=== PATIENT | female | born 1960 | race Caucasian/White ===

== ENCOUNTER 2019-08-05 13:51 | Inpatient (IN) | payer OTHER ==
[2019-08-05 16:49] VITALS: BMI 25.7
--- NOTE | 2019-08-05 18:33 | HP ---
COWS - Scale Resting Pulse: 1= TN 81-100 Sweatin= Chills/Flushing Restless Observation: 3= Extraneous Movement Pupil Size: 1= Pupils >than Normal Bone or Joint Aches: 1= Mild Discomfort Runny Nose/ Eye Tearin= None GI Upset > 30mins: 0= None Tremor Observation: 0= None Yawning Observation: 0= None Anxiety or Irritability: 0= None Goose Flesh Skin: 0=Smooth Skin COWS Score: 7 CIWA Score - Admission Criteria OASAS Guidelines: Admission for Medically Managed Detox: Requires at least one of the followin. CIWA greater than 12 2. Seizures within the past 24 hours 3. Delirium tremens within the past 24 hours 4. Hallucinations within the past 24 hours 5. Acute intervention needed for co occurring medical disorder 6. Acute intervention needed for co occurring psychiatric disorder 7. Severe withdrawal that cannot be handled at a lower level of care (continued vomiting, continued diarrhea, abnormal vital signs) requiring intravenous medication and/or fluids 8. Admission ROS [facility] - HPI Chief Complaint: detox from alcohol, MAT methadone Allergies/Adverse Reactions: Allergies Allergy/AdvReac Type Severity Reaction Status Date / Time ciprofloxacin [From Cipro] AdvReac Severe Hives Verified 08/05/19 16:35 Fish Containing Products AdvReac Severe Swelling Verified 08/05/19 16:35 chocolate flavor AdvReac Intermediate Vomiting Verified 08/05/19 16:35 coffee (Coffea arabica) AdvReac Intermediate Itching Verified 08/05/19 16:35 History of Present Illness: 59 yo with h/o of OUD/AUD, COPD, cirrhosis, cured HCV pos. Pt was discharged from the hospital last week after a 6 week stay for toe amputation after trauma to toe/foot. Pt has been in a methadone program- was getting methadone 50mg while hospitalized.. Pt states that when she returned to the [facility] methadone program they would not reinstate her b/c she was using alcohol and asked her to come for detox. pt uses rolling walker- R leg shorter than L leg- b/c of trauma to leg/hip- did not have surgery yet alcohol 1-2 pints a day, no seizures/DT's heroin- 4 bags IH, h/o OD 2 years ago, was on methadone program- [facility]- 50mg last dose about 10 days ago while hospitalized. meds- gabapentin 600mg TID prn, baclofen 20mg qd for muscle, benadryl for allergies 50mg BID prn, folic acid, MVI, MDI PCP- francisca PACKER- no medications Utox- THC, fen, MTD, Mop, BZO ILSA- 0.55 - Ebola screening Have you traveled outside of the country in the last 21 days: No Have you had contact with anyone from an Ebola affected area: No Do you have a fever: No - Review of Systems Constitutional: Changes in sleep, Weakness Respiratory: reports: Cough Cardiac: reports: No Symptoms Reported GI: reports: Diarrhea, Nausea : reports: No Symptoms Reported Musculoskeletal: reports: No Symptoms Reported Integumentary: reports: No Symptoms Reported Neuro: reports: No Symptoms reported Endocrine: reports: No Symptoms Reported Hematology: reports: No Symptoms Reported Psychiatric: reports: No Sypmtoms Reported Other Systems: Reviewed and Negative Patient History - Patient Medical History Hx Chronic Obstructive Pulmonary Disease (COPD): Yes Hx Hypertension: No Hx Hypercholesterolemia: No HX Cerebrovascular Accident: No Hx Seizures: No Hx Dementia: No Hx Diabetes: No Hx Gastrointestinal Disorders: No Hx Liver Disease: Yes (cirrhosis) Hx Sexually Transmitted Disorders: No Hx Renal Disease (ESRD): No Hx Thyroid Disease: No Hx Human Immunodeficiency Virus (HIV): No Hx Hepatitis C: Yes (cured) Hx Depression: Yes (has a provider does not know name of meds) Hx Suicide Attempt: No Hx Bipolar Disorder: No Hx Schizophrenia: No - Patient Surgical History Hx Hysterectomy: Yes (ectopic ) Other Surgical History: L 2nd toe amputation, trigger finger repair - Smoking Cessation Smoking history: Current every day smoker Have you smoked in the past 12 months: Yes Aproximately how many cigarettes per day: 10 Hx Chewing Tobacco Use: No Initiated information on smoking cessation: Yes 'Breaking Loose' booklet given: 08/05/19 - Substance & Tx. History Hx Alcohol Use: Yes Hx Substance Use: Yes Substance Use Type: Alcohol, Heroin, Opiates, Prescribed - Substances abused Alcohol Substance route: Oral Frequency: Daily Amount used: 2 PINTS OF VODKA Age of first use: 44 Date of last use: 08/05/19 Other Other (specify): opiates, methadone Substance route: Inhalation Frequency: Daily Date of last use: 08/05/19 Admission Physical Exam BHS - Vital Signs Vital Signs: Vital Signs - 24 hr 08/05/19 08/05/19 16:29 16:57 Temperature 98 F 98 F Pulse Rate 98 H 98 H Respiratory 18 18 Rate Blood Pressure 119/83 119/83 - Physical General Appearance: Yes: Disheveled, Moderate Distress, Tremorous, Anxious Abdominal: Yes: Within Normal Limits Back: Yes: Within Normal Limits Musculoskeletal: Yes: Other (needs assitance to walk, R leg shorter than L leg- b/c of trauma to leg/hip- did not have surgery yet) Extremities: Yes: Other (R leg shorter than L leg, darker than l leg, b/c of trauma to leg/hip- did not have surgery yet, L 2nd toe with Distal part of toe amputation, good DP pulses) Neurological: Yes: Within Normal Limits, Fully Oriented, Other (crying because her rolling walker wheel is broken-) Lymphatic: Yes: Other Breathalyzer - Breathalyzer Breathalyzer: 0.055 Urine Drug Screen - Test Device Lot number: [id number] Expiration date: 03/05/21 - Control Is test valid?: Yes - Results Urine drug screen results: THC-Marijuana, FEN-Fentanyl, MOP-Opiates, MTD- Methadone, BZO-Benzodiazepines Inpatient Rehab Admission - Rehab Decision to Admit Inpatient rehab admission?: No
[2019-08-05] MEDS ORDERED: IBUPROFEN 400 MG TABLET (FP) PO PRN (18:52)
[2019-08-05] MEDS ORDERED: MENTHOL/PHENOL 1 EACH UD MM PRN (18:52)
[2019-08-05] MEDS ORDERED: MAGNESIUM CITRATE 300 ML BOTTLE PO PRN (18:52)
[2019-08-05] MEDS ORDERED: ONDANSETRON *ODT* 4 MG TABLET SL PRN (18:52)
[2019-08-05] MEDS ORDERED: cloNIDine HCL 0.1 MG TABLET PO PRN (18:52)
[2019-08-05] MEDS ORDERED: MELATONIN 5 MG TABLETS PO PRN (18:52)
[2019-08-05] MEDS ORDERED: BISMUTH SUBSALICYLATE 524 MG/30 ML UD PO PRN (18:52)
[2019-08-05] MEDS ORDERED: hydrOXYzine PAMOATE 25 MG CAPSULE (FP) PO PRN (18:52)
[2019-08-05] MEDS ORDERED: NALOXONE HCL 0.4 MG/ML VIAL IM PRN (18:52)
[2019-08-05] MEDS ORDERED: METHOCARBAMOL 500 MG TABLET PO PRN (18:52)
[2019-08-05] MEDS ORDERED: MAG HYDROX/AL HYDROX/SIMETH 30 ML UNIT-DOSE CUP PO PRN (18:52)
[2019-08-05] MEDS ORDERED: METHADONE HCL 10 MG TABLET (FOR DETOX USE ONLY) PO ONE (18:52)
[2019-08-05] MEDS ORDERED: MAGNESIUM HYDROX 2400MG/30ML ORAL SUSPENSION 30 ML CUP PO PRN (18:52)
[2019-08-05] MEDS ORDERED: ACETAMINOPHEN 325 MG TABLET (FP) PO PRN ×2 (18:52)
[2019-08-05] MEDS ORDERED: LORazepam 1 MG TABLET PO PRN (18:52)
[2019-08-05] MEDS ORDERED: PATIENT'S OWN MEDICATION (NON-FORMULARY) (Baclofen [Baclofen] 20 MG) PO PRN (18:56)
[2019-08-05] MEDS ORDERED: diphenhydrAMINE HCL 50 MG CAPSULE PO PRN (18:56)
[2019-08-05] MEDS ORDERED: PATIENT'S OWN MEDICATION (NON-FORMULARY) (Gabapentin [Gabapentin] 600 MG) PO PRN (18:56)
[2019-08-05] MEDS ORDERED: BACLOFEN 10 MG TABLET (FP) PO PRN (19:02)
[2019-08-05] MEDS ORDERED: GABAPENTIN 300 MG CAPSULE (FP) PO PRN (19:03)
[2019-08-05] MEDS ORDERED: LORazepam 2 MG TABLET PO ONE (19:30)
[2019-08-05] MEDS: THIAMINE HCL 100 MG TABLET (FP) PO SCH (21:52)
[2019-08-05] MEDS: LORazepam 2 MG TABLET PO SCH (22:52)
[2019-08-06] MEDS: LORazepam 2 MG TABLET PO SCH ×4 (07:07→22:50)
[2019-08-06] MEDS ORDERED: METHADONE HCL 5 MG TABLET (FOR DETOX USE ONLY) ONE (09:13)
[2019-08-06] MEDS ORDERED: METHADONE HCL 10 MG TABLET (FOR DETOX USE ONLY) ONE (09:13)
[2019-08-06] MEDS ORDERED: METHADONE (DETOX) 20 MG, METHADONE (DETOX) 5 MG PO ONE (10:00)
[2019-08-06] MEDS ORDERED: PRENATAL VITAMINS W/ FOLIC ACID TABLET (FP) PO SCH (10:00)
[2019-08-06] MEDS ORDERED: NICOTINE 14 MG/24 HOURS TOPICAL PATCH TD SCH (10:00)
[2019-08-06 10:21] LABS: HEMATOCRIT 36.5 % (32.4-45.2); HEMOGLOBIN 12.1 GM/dL (10.7-15.3); MCH 31.8 pg (25.7-33.7); MCHC 33.3 g/dl (32.0-36.0); MEAN CELL VOLUME 95.5 fl (80-96); MEAN PLT VOLUME 10.2 fl (7.5-11.1); RBC 3.82 M/mm3 (3.60-5.2); RDW 13.7 % (11.6-15.6)
--- NOTE | 2019-08-06 10:31 | CONSULT ---
[facility] Psychiatric Consult - Data Date of interview: 08/06/19 Admission source: Júnior De La Cruz Identifying data: Ms Espinoza is a 59 years old female, mother of a 40 years old daughter, unemployed receiving SSD, homeless seeking detox treatment for alcohol and opioid Substance Abuse History: Reports history of alcohol and heroin use. Refer to addiction counselor's summary for further information Medical History: Significant for COPD, cirrhosis of the liver, history of treatment for hepatitits C, orthosurgery for ampitation of left second toe due to trauma an ectopic . Smokes 10 cigarette daily Psychiatric History: Patient is a poor and unreliable historian. Reports that she started seeing a psychiatrist in [place] due depression in the context of medical issues after a fall. Claims that she was mainly receiving psychotherapy but she was prescribed a medication which she has no recollection of the name. She said that she saw that person till she moved to the [place] but she was unable to tell when she did so. Claims that she currently sees a psychiatrist at a program at [facility] and she is prescribed medication for sleep. Denies previous psychiatric hospitalization or suicidal attempt. At present, reports feeling depressed and sleeping poorly Mental Status Exam - Mental Status Exam Alert and Oriented to: Time, Place, Person Cognitive Function: Fair Patient Appearance: Well Groomed Mood: Depressed Affect: Appropriate Speech Pattern: Clear Voice Loudness: Normal Thought Process: Intact, Goal Oriented Hallucinations: Denies Suicidal Ideation: Denies Homicidal Ideation: Denies Insight/Judgement: Poor Sleep: Poorly Appetite: Poor Muscle strength/Tone: Normal Gait/Station: Normal Psychiatric Findings - Problem List ([place] 1, 2,3) (1) Substance induced mood disorder Current Visit: Yes Status: Acute (2) Substance-induced sleep disorder Current Visit: Yes Status: Acute (3) Alcohol dependence Current Visit: Yes Status: Acute (4) Opioid dependence on agonist therapy Current Visit: Yes Status: Chronic (5) Nicotine dependence Current Visit: Yes Status: Chronic (6) COPD (chronic obstructive pulmonary disease) Current Visit: Yes Status: Chronic (7) Cirrhosis of liver Current Visit: Yes Status: Chronic (8) Hepatitis C Current Visit: Yes Status: Resolved - Initial Treatment Plan Initial Treatment Plan: 1) Start Belsomra 10 mg po HS prn for insomnia. 2) Continue inpatient detoxification
[2019-08-06 10:42] LABS: ALBUMIN 2.9 g/dl (3.4-5.0); BILIRUBIN,TOTAL 0.6 mg/dL (0.2-1); BLOOD UREA NITROGEN 13.8 mg/dL (7-18); CALCIUM 8.4 mg/dL (8.5-10.1); CREATININE 0.6 mg/dL (0.55-1.3); POTASSIUM 3.1 mmol/L (3.5-5.1); TOT PROT 6.1 g/dl (6.4-8.2)
[2019-08-06 10:55] LABS: PLATELET COUNT 36 K/MM3 (134-434); WHITE BLOOD COUNT 1.4 K/mm3 (4.0-10.0)
[2019-08-06] MEDS ORDERED: POTASSIUM CHLORIDE TABS 20 MEQ TABLET.ER (FP) PO SCH (13:15)
--- NOTE | 2019-08-06 13:19 | PN ---
S CIWA - CIWA Score Nausea/Vomitin Muscle Tremors: 2 Anxiety: 3 Agitation: 0-Normal Activity Paroxysmal Sweats: 1-Minimal Palms Moist Orientation: 0-Oriented Tacttile Disturbances: 1-Very Mild Itch/Numbness Auditory Disturbances: 0-None Visual Disturbances: 0-None Headache: 0-None Present CIWA-Ar Total Score: 10 BHS COWS - Scale Resting Pulse: 1= [place] 81-100 Sweatin= Chills/Flushing Restless Observation: 1= Difficult to Sit Still Pupil Size: 0= Normal to Room Light Bone or Joint Aches: 2= Severe Diffuse Aches Runny Nose/ Eye Tearin= Nasal Congestion GI Upset > 30mins: 2= Nausea/Diarrhea Tremor Observation of Outstretched Hands: 1= Tremor [place], Not Seen Yawning Observation: 1= 1-2x During Session Anxiety or Irritability: 2=Irritable/Anxious Goose Flesh Skin: 0=Smooth Skin COWS Score: 12 [facility] Progress Note (SOAP) Subjective: c/o of body aches, chills, nausea and diarrhea Objective: 08/06/19 13:22 Vital Signs Temperature 98.8 F 08/06/19 10:16 Pulse Rate 91 H 08/06/19 10:16 Respiratory Rate 18 08/06/19 10:16 Blood Pressure 98/62 08/06/19 10:16 O2 Sat by Pulse Oximetry (%) Laboratory Last Values WBC 1.4 K/mm3 (4.0-10.0) L* 08/06/19 07:40 RBC 3.82 M/mm3 (3.60-5.2) 08/06/19 07:40 Hgb 12.1 GM/dL (10.7-15.3) 08/06/19 07:40 Hct 36.5 % (32.4-45.2) 08/06/19 07:40 MCV 95.5 fl (80-96) 08/06/19 07:40 MCH 31.8 pg (25.7-33.7) 08/06/19 07:40 MCHC 33.3 g/dl (32.0-36.0) 08/06/19 07:40 RDW 13.7 % (11.6-15.6) 08/06/19 07:40 Plt Count 36 K/MM3 (134-434) L* 08/06/19 07:40 MPV 10.2 fl (7.5-11.1) 08/06/19 07:40 Sodium 138 mmol/L (136-145) 08/06/19 07:40 Potassium 3.1 mmol/L (3.5-5.1) L 08/06/19 07:40 Chloride 101 mmol/L (98-107) 08/06/19 07:40 Carbon Dioxide 31 mmol/L (21-32) 08/06/19 07:40 Anion Gap 6 MMOL/L (8-16) L 08/06/19 07:40 BUN 13.8 mg/dL (7-18) 08/06/19 07:40 Creatinine 0.6 mg/dL (0.55-1.3) 08/06/19 07:40 Est GFR (CKD-EPI)AfAm 114.82 08/06/19 07:40 Est GFR (CKD-EPI)NonAf 99.07 08/06/19 07:40 Random Glucose 96 mg/dL (74-106) 08/06/19 07:40 Calcium 8.4 mg/dL (8.5-10.1) L 08/06/19 07:40 Total Bilirubin 0.6 mg/dL (0.2-1) 08/06/19 07:40 AST 27 U/L (15-37) 08/06/19 07:40 ALT 25 U/L (13-61) 08/06/19 07:40 Alkaline Phosphatase 125 U/L (45-117) H 08/06/19 07:40 Total Protein 6.1 g/dl (6.4-8.2) L 08/06/19 07:40 Albumin 2.9 g/dl (3.4-5.0) L 08/06/19 07:40 RPR Titer Nonreactive (NONREACTIVE) 08/06/19 07:40 Labs reviewed Assessment: 08/06/19 13:23 Patient Aox3, no acute distress sitting in bed, wheelchair present at the bedside full ROM present no erythema present withdrawal sx Plan: abnormal labs d/t hx of liver cirrhosis and alcohol abuse, repeat CBC, CMP, draw PT/INR hypokalemia: KDur 20 qd d/c ibuprofen and acetaminophen decrease dose in baclofen d/t risk of sedation increase fluids continue to monitor if worsening symptoms present evaluate at [facility]
[2019-08-06 14:48] VITALS: BP 104/77; PULSE 101; TEMP 98.7
--- NOTE | 2019-08-06 17:45 | EKG ---
Test Reason : Blood Pressure : / mmHG Vent. Rate : 105 BPM Atrial Rate : 105 BPM P-R Int : 174 ms QRS Dur : 098 ms QT Int : 368 ms P-R-T Axes : 062 051 044 degrees QTc Int : 486 ms SINUS TACHYCARDIA OTHERWISE NORMAL ECG NO PREVIOUS ECGS AVAILABLE Confirmed by PACHECO SAAVEDRA, HORTENCIA ([id number]) on 08/06/2019 5:45:40 PM Referred By: CLAY Confirmed By:HORTENCIA BERGMAN MD
[2019-08-06] MEDS ORDERED: diphenhydrAMINE HCL 25 MG CAPSULE (FP) PO ONE (21:33)
[2019-08-06] MEDS: THIAMINE HCL 100 MG TABLET (FP) PO SCH (22:51)
[2019-08-07] MEDS ORDERED: LORazepam 1 MG TABLET PO SCH (05:00)
[2019-08-07] MEDS ORDERED: METHADONE HCL 10 MG TABLET (FOR DETOX USE ONLY) PO ONE (10:00)
[2019-08-08] MEDS ORDERED: LORazepam 0.5 MG TABLET PO PRN
[2019-08-08] MEDS ORDERED: LORazepam 0.5 MG TABLET PO SCH (05:00)
[2019-08-08] MEDS ORDERED: METHADONE (DETOX) 10 MG, METHADONE (DETOX) 5 MG PO ONE (10:00)
[2019-08-09] MEDS ORDERED: LORazepam 0.5 MG TABLET PO ONE (05:00)
[2019-08-09] MEDS ORDERED: METHADONE HCL 10 MG TABLET (FOR DETOX USE ONLY) PO ONE (10:00)
[2019-08-10] MEDS ORDERED: METHADONE HCL 5 MG TABLET (FOR DETOX USE ONLY) PO ONE (06:00)
== END 2019-08-07 00:46 | disposition short-term general hospital (02) | DRG 773 ==
LOC: YASAS 13:51 → Y6N 19:27
PROVIDERS: ADMIT Allergy & Immunology; ATTEND Allergy & Immunology
PROC: HZ2ZZZZ Detoxification Services for Substance Abuse Treatment (ICD-10-PCS; principal; 2019-08-05)
DX: F10.230 Alcohol dependence with withdrawal, uncomplicated (principal); F11.20 Opioid dependence, uncomplicated; F17.210 Nicotine dependence, cigarettes, uncomplicated; F19.24 Other psychoactive substance dependence with psychoactive substance-induced mood disorder; F19.282 Other psychoactive substance dependence with psychoactive substance-induced sleep disorder; E87.6 Hypokalemia; K74.60 Unspecified cirrhosis of liver; J44.9 Chronic obstructive pulmonary disease, unspecified; Z86.19 Personal history of other infectious and parasitic diseases; Z88.1 Allergy status to other antibiotic agents; Z91.013 Allergy to seafood; Z91.018 Allergy to other foods
CPT/HCPCS: 36415; 80053; 85027; 86593; 93005; 93010; J0475

== ENCOUNTER 2019-08-06 16:11 | Inpatient (IN) | payer OTHER ==
[2019-08-06] MEDS ORDERED: SODIUM CHLORIDE 1,973 ML IV ONE (16:55)
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
[2019-08-06 17:30] LABS: VENOUS PH 7.39 (7.31-7.41)
[2019-08-06 17:33] LABS: VENOUS PO2 < 49 mmHg (28-48)
--- NOTE | 2019-08-06 18:11 | PDOC ---
Documentation entered by Aubree Larios SCRIBE, acting as scribe for Shravan Cheney MD. Shravan Cheney MD: This documentation has been prepared by the Ric olson Nirvannie, SCRIBE, under my direction and personally reviewed by me in its entirety. I confirm that the documentation accurately reflects all work, treatment, procedures, and medical decision making performed by me. Attending Attestation - Resident Resident Name: Ishmael Sims - ED Attending Attestation I have performed the following: I have examined & evaluated the patient, The case was reviewed & discussed with the resident, I agree w/resident's findings & plan, Exceptions are as noted - HPI HPI: 08/06/19 18:07 CC: Lethargy, Weakness HPI: The patient is a year old male, with a significant past medical history of substance abuse (heroin and alcohol), COPD, cirrhosis, cured HCV pos, who presents to the emergency department via EMS from [facility] with lethargy, weakness, and diffuse malaise subjective fevers found to have low WBC at [facility] sent to the ED for further evaluation. - Physicial Exam PE: 08/06/19 18:59 Vitals: Triage Vital signs reviewed General Appearance: No acute distress, well nourished well developed, Head: Atraumatic, Cardiac: Regular rate and rhythym, no murmurs, no rubs, no gallops, Lungs: Clear to auscultation bilateral, good air movement bilaterally, Abdomen: Soft, non distended, normal bowel sounds, non tender to palpation Extremities: Full range of motion to all extremities, no cyanosis, clubbing, or edema Skin: Warm and dry, no rashes or lesions, no rash, no petechiae Psych: Normal mood, normal affect - Medical Decision Making 08/06/19 19:01 Subjective fever chills low WBC will evaluate patient for neutropenia sepsis work-up and reassess Dr. See to follow-up labs results and disposition
[2019-08-06 18:21] LABS: MEAN CELL VOLUME 95.8 fl (80-96)
[2019-08-06 18:28] LABS: BASO % 0.7 % (0-2.0); EOS % 0.8 % (0-4.5); HEMATOCRIT 39.4 % (32.4-45.2); HEMOGLOBIN 13.1 GM/dL (10.7-15.3); LYMPH % 21.6 % (8-40); MCH 31.9 pg (25.7-33.7); MCHC 33.3 g/dl (32.0-36.0); MEAN PLT VOLUME 9.3 fl (7.5-11.1); MONO % 15.7 % (3.8-10.2); NEUT % 61.2 % (42.8-82.8); RBC 4.12 M/mm3 (3.60-5.2); RDW 13.9 % (11.6-15.6)
[2019-08-06 18:32] LABS: PLATELET COUNT 47 K/MM3 (134-434); WHITE BLOOD COUNT 1.5 K/mm3 (4.0-10.0)
[2019-08-06 18:37] LABS: INR 1.13 (0.83-1.09); PROTHROMBIN TIME (PATIENT) 13.4 SEC (9.7-13.0)
[2019-08-06 18:40] LABS: ACTIVATED PTT 29.4 SECONDS (25.2-36.5)
[2019-08-06 18:54] LABS: PLATELET ESTIMATE DECREASED
[2019-08-06 19:05] LABS: BILIRUBIN,TOTAL 0.5 mg/dL (0.2-1); BLOOD UREA NITROGEN 14.5 mg/dL (7-18); CALCIUM 8.7 mg/dL (8.5-10.1); CREATININE 0.7 mg/dL (0.55-1.3); POTASSIUM 4.1 mmol/L (3.5-5.1); TOT PROT 6.6 g/dl (6.4-8.2)
[2019-08-06] MEDS ORDERED: VANCOMYCIN HCL 1,500 MG in DEXTROSE 5%-WATER - 500 ML IVPB ONE (19:13)
[2019-08-06 19:15] LABS: EPI CELLS 6.3 /HPF (0-5/HPF); HYALINE CASTS 6 /lpf (0-8); URINE APPEARANCE CLOUDY; URINE BACTERIA 4250.6 /hpf (NEGATIVE); URINE BILIRUBIN NEGATIVE (NEGATIVE); URINE COLOR YELLOW; URINE GLUCOSE (UA) NEGATIVE (NEGATIVE); URINE KETONE NEGATIVE (NEGATIVE); URINE LEUK ESTERASE 2+ (NEGATIVE); URINE NITRITE POSITIVE (NEGATIVE); URINE PROTEIN 1+ (NEGATIVE); URINE RBC 25 /hpf (0-4); URINE WBC 84 /hpf (0-5)
[2019-08-06] MEDS ORDERED: PIPERACILLIN/TAZOB 3.375 GM 3.375 GM in DEXTROSE 5%-WATER - 50 ML IVPB ONE (19:15)
[2019-08-06] MEDS ORDERED: chlordiazePOXIDE HCL 25 MG CAPSULE PO ONE (19:19)
[2019-08-06] MEDS ORDERED: diphenhydrAMINE HCL 50 MG CAPSULE PO ONE (19:19)
[2019-08-06] MEDS ORDERED: chlordiazePOXIDE HCL 25 MG CAPSULE ONE (19:26)
[2019-08-06] MEDS ORDERED: diphenhydrAMINE HCL 25 MG CAPSULE (FP) PO ONE (19:27)
[2019-08-06] MEDS ORDERED: VANCOMYCIN 1 GRAM (PRE-DOCKED) 1,000 MG/250 ML BAG IVPB ONE (19:27)
[2019-08-06] MEDS ORDERED: PIPERACILLIN/TAZOB 3.375 GM 3.375 GM/50 ML BAG IVPB ONE (19:28)
[2019-08-06] MEDS ORDERED: ALBUTEROL SO4 2.5/IPRATROPIUM 0.5 INH SOL 3 ML VIAL.NEB. NEB ONE ×4 (19:28→22:54)
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
[2019-08-06 20:20] LABS: MAGNESIUM 2.1 mg/dL (1.8-2.4)
[2019-08-06 20:24] LABS: COCAINE, UR NEGATIVE ng/ml (CUTOFF=300); PHENCYCLIDINE,URINE NEGATIVE ng/ml (CUTOFF=25); URINE AMPHETAMINES NEGATIVE ng/ml (CUTOFF=500); URINE BARBITURATES NEGATIVE ng/ml (CUTOFF=200); URINE BENZODIAZEPINES NEGATIVE ng/ml (CUTOFF=200)
[2019-08-06 20:25] LABS: OPIATES, URI POSITIVE ng/ml (CUTOFF=300)
[2019-08-06 20:26] LABS: METHADONE, UR POSITIVE ng/ml (CUTOFF=300)
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
[2019-08-06] MEDS ORDERED: ACETAMINOPHEN 1000 MG/100 ML VIAL (NON FORMULARY) IVPB ONE (20:52)
[2019-08-06] MEDS ORDERED: ACETAMINOPHEN INJECTION 100 ML IVPB ONE (21:41)
[2019-08-06] MEDS ORDERED: LORazepam 1 MG TABLET PO PRN (22:11)
[2019-08-06] MEDS ORDERED: FOLIC ACID INJECTION - 1 MG, THIAMINE HCL 100 MG, MULTIVIT INJECTION ADULT 10 ML in SOD... IVPB ONE (22:12)
[2019-08-06] MEDS ORDERED: LORazepam 0.5 MG TABLET ONE (22:55)
[2019-08-06] MEDS: LORazepam 2 MG TABLET PO SCH (23:01)
--- NOTE | 2019-08-06 23:19 | HP ---
CHIEF COMPLAINT:lower abdominal pain PCP:scot geiger HISTORY OF PRESENT ILLNESS: 59 yo F PMH COPD, HCV (s/p tx) , cirrhosis, substance abuse ( heroin , alcohol- last use 2 days ago) presents from [facility] for leukopenia, thrombocytopenia. pt states that she has been having lower abdominal pain since last night. pt states that shes also been having dysuria for 4 days. pt is a poor historian and very lethargic. ER course was notable for: (1)s/p vanc / zosyn (2)librium 25 (3) Recent Travel: denies Family History: Mother- Colon Ca, Father lung ca PAST MEDICAL HISTORY: COPD, HCV (s/p tx) , cirrhosis, substance abuse ( heroin , alcohol- last use 2 days ago) PAST SURGICAL HISTORY: L 2nd toe amputation Social History: Smokin/2 pk/ day for> 30 yrs Alcohol:last drink 2 days ago Drugs: methadone, heroin Allergies ciprofloxacin [From Cipro] Adverse Reaction (Severe, Verified 08/06/19 16:44) Hives Fish Containing Products Adverse Reaction (Severe, Verified 08/06/19 16:44) Swelling chocolate flavor Adverse Reaction (Intermediate, Verified 08/06/19 16:44) Vomiting coffee (Coffea arabica) Adverse Reaction (Intermediate, Verified 08/06/19 16:44) Itching HOME MEDICATIONS: Home Medications Medication Instructions Recorded Baclofen 20 mg PO TID 08/05/19 Diphenhydramine [Benadryl -] 50 mg PO TID PRN 08/05/19 Folic Acid 1 mg PO DAILY 08/05/19 Gabapentin 600 mg PO TID 08/05/19 Multivitamin [One-Daily 1 each PO DAILY 08/05/19 Multi-Vitamin] Zolpidem Tartrate [Ambien] 5 mg PO HS 08/05/19 REVIEW OF SYSTEMS CONSTITUTIONAL: Absent: fever, chills, diaphoresis, generalized weakness, malaise, loss of appetite, weight change HEENT: Absent: rhinorrhea, nasal congestion, throat pain, throat swelling, difficulty swallowing, mouth swelling, ear pain, eye pain, visual changes CARDIOVASCULAR: Absent: chest pain, syncope, palpitations, irregular heart rate, lightheadedness , peripheral edema RESPIRATORY: Absent: cough, shortness of breath, dyspnea with exertion, orthopnea, wheezing, stridor, hemoptysis GASTROINTESTINAL: Present: abdominal pain, nausea, diarrhea Absent:abdominal distension, vomiting, constipation, melena, hematochezia GENITOURINARY: PResent: dysuria Absent: frequency, urgency, hesitancy, hematuria, flank pain, genital pain MUSCULOSKELETAL: Absent: myalgia, arthralgia, joint swelling, back pain, neck pain SKIN: Absent: rash, itching, pallor HEMATOLOGIC/IMMUNOLOGIC: Absent: easy bleeding, easy bruising, lymphadenopathy, frequent infections ENDOCRINE: Absent: unexplained weight gain, unexplained weight loss, heat intolerance, cold intolerance NEUROLOGIC: Present: headache Absent: focal weakness or paresthesias, dizziness, unsteady gait, seizure, mental status changes, bladder or bowel incontinence PSYCHIATRIC: Present: anxiety Absent: anxiety, depression, suicidal or homicidal ideation, hallucinations. PHYSICAL EXAMINATION Vital Signs - 24 hr 08/06/19 16:15 Temperature 99.5 F Pulse Rate 99 H Respiratory 16 Rate Blood Pressure 99/64 O2 Sat by Pulse 95 Oximetry (%) GENERAL: diaphoretic, lethargic , anxious HEAD: Normal with no signs of trauma. EYES: Pupils equal, round and reactive to light, extraocular movements intact, sclera anicteric, conjunctiva clear. EARS, NOSE, THROAT: nares patent, oropharynx clear without exudates. Moist mucous membranes. + tongue fasciculation NECK: Normal range of motion, supple without lymphadenopathy, or masses. + JVD, + hepatojugular LUNGS: Breath sounds equal,b/l expiratory wheezes and rhonchi .No accessory muscle use. HEART: tachycardic and regular rhythm, normal S1 and S2 without murmur, rub or gallop. ABDOMEN: Soft, nontender, not distended, normoactive bowel sounds, no guarding, no rebound, no masses. MUSCULOSKELETAL: decreased range of motion at R shoulder . No bony deformities or tenderness. No CVA tenderness. UPPER EXTREMITIES: 2+ pulses, warm, well-perfused. No cyanosis. + clubbing. No peripheral edema. LOWER EXTREMITIES: 2+ pulses, warm, well-perfused. No calf tenderness. No peripheral edema. NEUROLOGICAL: Cranial nerves II-XII intact. PSYCHIATRIC: anxious, CIWA 19 Laboratory Last Values WBC 1.5 K/mm3 (4.0-10.0) L* 08/06/19 18:10 Corrected WBC (auto) Cancelled 08/06/19 17:30 RBC 4.12 M/mm3 (3.60-5.2) 08/06/19 18:10 Hgb 13.1 GM/dL (10.7-15.3) 08/06/19 18:10 Hct 39.4 % (32.4-45.2) 08/06/19 18:10 MCV 95.8 fl (80-96) 08/06/19 18:10 MCH 31.9 pg (25.7-33.7) 08/06/19 18:10 MCHC 33.3 g/dl (32.0-36.0) 08/06/19 18:10 RDW 13.9 % (11.6-15.6) 08/06/19 18:10 Plt Count 47 K/MM3 (134-434) L D 08/06/19 18:10 MPV 9.3 fl (7.5-11.1) 08/06/19 18:10 Absolute Neuts (auto) 0.9 K/mm3 (1.5-8.0) L 08/06/19 18:10 Absolute Lymphs (auto) Cancelled 08/06/19 17:30 Absolute Monos (auto) Cancelled 08/06/19 17:30 Absolute Eos (auto) Cancelled 08/06/19 17:30 Absolute Basos (auto) Cancelled 08/06/19 17:30 Add Manual Diff Cancelled 08/06/19 17:30 Total Counted 100 08/06/19 18:10 Neutrophils % 61.2 % (42.8-82.8) 08/06/19 18:10 Neutrophils % (Manual) 60.0 % (42.8-82.8) 08/06/19 18:10 Band Neutrophils % 4.0 % 08/06/19 18:10 Lymphocytes % 21.6 % (8-40) 08/06/19 18:10 Lymphocytes % (Manual) 22.0 % (8-40) 08/06/19 18:10 Monocytes % 15.7 % (3.8-10.2) H 08/06/19 18:10 Monocytes % (Manual) 14 % (3.8-10.2) H 08/06/19 18:10 Eosinophils % 0.8 % (0-4.5) 08/06/19 18:10 Basophils % 0.7 % (0-2.0) 08/06/19 18:10 Nucleated RBC % 0 % (0-0) 08/06/19 18:10 Platelet Estimate Decreased 08/06/19 18:10 Platelet Comment No clumping noted 08/06/19 18:10 Normal RBC Morphology Cancelled 08/06/19 17:30 PT with INR 13.40 SEC (9.7-13.0) H 08/06/19 18:10 INR 1.13 (0.83-1.09) H 08/06/19 18:10 PTT (Actin FS) 29.4 SECONDS (25.2-36.5) 08/06/19 18:10 VBG pH 7.39 (7.31-7.41) 08/06/19 17:15 POC VBG pCO2 50.0 mmHg (38-52) 08/06/19 17:15 POC VBG pO2 < 49 mmHg (28-48) H 08/06/19 17:15 VBG HCO3 29.8 mmol/L (23-29) H 08/06/19 17:15 VBG O2 Sat (Minor) 76.4 % (70-80) 08/06/19 17:15 VBG Base Excess 4.5 meq/l (-2-2) H 08/06/19 17:15 Sodium 139 mmol/L (136-145) 08/06/19 18:00 Potassium 4.1 mmol/L (3.5-5.1) 08/06/19 18:00 Chloride 104 mmol/L (98-107) 08/06/19 18:00 Carbon Dioxide 32 mmol/L (21-32) 08/06/19 18:00 Anion Gap 3 MMOL/L (8-16) L 08/06/19 18:00 BUN 14.5 mg/dL (7-18) 08/06/19 18:00 Creatinine 0.7 mg/dL (0.55-1.3) 08/06/19 18:00 Est GFR (CKD-EPI)AfAm 109.15 08/06/19 18:00 Est GFR (CKD-EPI)NonAf 94.17 08/06/19 18:00 Random Glucose 102 mg/dL (74-106) 08/06/19 18:00 Lactic Acid 1.3 mmol/L (0.4-2.0) 08/06/19 17:25 Calcium 8.7 mg/dL (8.5-10.1) 08/06/19 18:00 Magnesium 2.1 mg/dL (1.8-2.4) 08/06/19 18:10 Total Bilirubin 0.5 mg/dL (0.2-1) 08/06/19 18:00 AST 29 U/L (15-37) 08/06/19 18:00 ALT 27 U/L (13-61) 08/06/19 18:00 Alkaline Phosphatase 150 U/L (45-117) H 08/06/19 18:00 B-Natriuretic Peptide 31.0 pg/ml (5-125) 08/06/19 18:10 Total Protein 6.6 g/dl (6.4-8.2) 08/06/19 18:00 Albumin 3.0 g/dl (3.4-5.0) L 08/06/19 18:00 Urine Color Yellow 08/06/19 19:00 Urine Appearance Cloudy 08/06/19 19:00 Urine pH 7.0 (5.0-8.0) 08/06/19 19:00 Ur Specific [place] 1.019 (1.010-1.035) 08/06/19 19:00 Urine Protein 1+ (NEGATIVE) H 08/06/19 19:00 Urine Glucose (UA) Negative (NEGATIVE) 08/06/19 19:00 Urine Ketones Negative (NEGATIVE) 08/06/19 19:00 Urine Blood 1+ (NEGATIVE) H 08/06/19 19:00 Urine Nitrite Positive (NEGATIVE) H 08/06/19 19:00 Urine Bilirubin Negative (NEGATIVE) 08/06/19 19:00 Urine Urobilinogen 2.0 mg/dL (0.2-1.0) H 08/06/19 19:00 Ur Leukocyte Esterase 2+ (NEGATIVE) H 08/06/19 19:00 Urine WBC (Auto) 84 /hpf (0-5) 08/06/19 19:00 Urine RBC (Auto) 25 /hpf (0-4) 08/06/19 19:00 Urine Casts (Auto) 6 /lpf (0-8) 08/06/19 19:00 U Epithel Cells (Auto) 6.3 /HPF (0-5/HPF) 08/06/19 19:00 Urine Bacteria (Auto) 4250.6 /hpf (NEGATIVE) 08/06/19 19:00 Opiates Screen Positive ng/ml (NYPASS=200) A* 08/06/19 19:00 Methadone Screen Positive ng/ml (XRRRIQ=192) A* 08/06/19 19:00 Barbiturate Screen Negative ng/ml (OJZPCE=310) 08/06/19 19:00 Phencyclidine Screen Negative ng/ml (CUTOFF=25) 08/06/19 19:00 Ur Amphetamines Screen Negative ng/ml (CEAWLD=845) 08/06/19 19:00 MDMA (Ecstasy) Screen Negative ng/ml (GIQHSK=091) 08/06/19 19:00 Benzodiazepines Screen Negative ng/ml (LKTNZC=203) 08/06/19 19:00 Cocaine Screen Negative ng/ml (YTGJTW=613) 08/06/19 19:00 U Marijuana (THC) Screen Positive ng/ml (CUTOFF=50) A* 08/06/19 19:00 Influenza A (Rapid) Negative (Negative) 08/06/19 17:50 Influenza B (Rapid) Negative (Negative) 08/06/19 17:50 Blood Type AB POSITIVE 08/06/19 18:10 Antibody Screen Negative 08/06/19 18:10 ASSESSMENT/PLAN: 59 yo F PMH COPD, HCV (s/p tx) , cirrhosis, substance abuse ( heroin , alcohol- last use 2 days ago) presents from [facility] for leukopenia, thrombocytopenia. pt admitted for sepsis 2/2 UTI Sepsis 2/2 UTI - + UA , pending UCulture , pending BCx - c/w empiric vanc/ zosyn -pending renal and bladder U/s - ID recs appreciated - pending CXR Leukopenia, thrombocytopenia - likely 2/2 alcohol abuse and cirrhosis - pending HIV testing Acute toxic metabolic encephalopathy - r/o acute intracranial pathology -pending CT head COPD -c/w duonebs substance abuse/ Alcohol withdrawal - CIWA 19, continue ativan protocol - IV fluids, folate, thiamine - c/w methadone 25, as per [facility] orders - seizure precautions decreased ROM of R shoulder, will get XR to r/o pathology F/E/N - c/w IV fluids @ 75 mls/ hr - c/w Folate, thiamine -monitor lytes -regular diet DVT ppx: lovenox Dispo: admit to medicine Visit type - Emergency Visit Emergency Visit: Yes ED Registration Date: 08/06/19 Care time: The patient presented to the Emergency Department on the above date and was hospitalized for further evaluation of their emergent condition. - New Patient This patient is new to me today: Yes Date on this admission: 08/07/19 - Critical Care Critical Care patient: No ATTENDING PHYSICIAN STATEMENT I saw and evaluated the patient. I reviewed the resident's note and discussed the case with the resident. I agree with the resident's findings and plan as documented. SUBJECTIVE: OBJECTIVE: ASSESSMENT AND PLAN:
[2019-08-07 03:57] VITALS: BMI 26.1
[2019-08-07] MEDS ORDERED: PIPERACILLIN/TAZOBACTAM 2.25 GM VIAL IVPB ONE ×2 (04:10→09:28)
[2019-08-07] MEDS ORDERED: DEXTROSE 5%-WATER - 50 ML IVPB ONE ×2 (04:11→09:29)
[2019-08-07] MEDS: PIPERACILLIN/TAZOB 2.25 GM 2.25 GM in DEXTROSE 5%-WATER - 50 ML IVPB SCH ×3 (04:56→15:03)
[2019-08-07] MEDS: LORazepam 2 MG TABLET PO SCH ×2 (05:11→11:29)
[2019-08-07 07:58] LABS: BASO % 0.5 % (0-2.0); EOS % 1.5 % (0-4.5); HEMATOCRIT 33.9 % (32.4-45.2); HEMOGLOBIN 11.4 GM/dL (10.7-15.3); LYMPH % 30.3 % (8-40); MCH 32.2 pg (25.7-33.7); MCHC 33.6 g/dl (32.0-36.0); MEAN CELL VOLUME 95.8 fl (80-96); MEAN PLT VOLUME 9.3 fl (7.5-11.1); MONO % 22.4 % (3.8-10.2); NEUT % 45.3 % (42.8-82.8); RBC 3.53 M/mm3 (3.60-5.2); RDW 13.9 % (11.6-15.6)
[2019-08-07] MEDS: ALBUTEROL SO4 2.5/IPRATROPIUM 0.5 INH SOL 3 ML VIAL.NEB. NEB SCH ×4 (08:27→20:30)
[2019-08-07 08:34] LABS: WHITE BLOOD COUNT 1.2 K/mm3 (4.0-10.0)
[2019-08-07 08:35] LABS: PLATELET COUNT 34 K/MM3 (134-434)
[2019-08-07 08:41] LABS: ALBUMIN 2.5 g/dl (3.4-5.0); BILIRUBIN,TOTAL 0.6 mg/dL (0.2-1); CALCIUM 8.2 mg/dL (8.5-10.1); CREATININE 0.6 mg/dL (0.55-1.3); MAGNESIUM 2.2 mg/dL (1.8-2.4); PHOSPHOROUS 4.3 mg/dL (2.5-4.9); POTASSIUM 3.8 mmol/L (3.5-5.1); TOT PROT 5.5 g/dl (6.4-8.2)
[2019-08-07] MEDS ORDERED: FOLIC ACID 5 MG/1 ML SQ ONE (09:00)
[2019-08-07] MEDS: THIAMINE HCL 200 MG/2 ML VIAL IVPB SCH (09:35)
[2019-08-07] MEDS ORDERED: PT OWN MED DRAWER 7, Y5N ONE ×3 (09:39→11:00)
[2019-08-07] MEDS ORDERED: LORazepam 2 MG/ML SDV VIAL IVPUSH ONE (09:45)
[2019-08-07] MEDS ORDERED: ENOXAPARIN NA (PORCINE) 40 MG/0.4 ML DISP.SYRIN SQ SCH (10:00)
[2019-08-07] MEDS ORDERED: VANCOMYCIN 1 GM in D5W (PRE-DOCKED) 1,000 MG/250 ML IVPB SCH ×2 (10:00→23:00)
[2019-08-07] MEDS ORDERED: LORazepam 1 MG TABLET PO SCH (11:04)
[2019-08-07] MEDS: LORazepam 1 MG TABLET PO SCH ×3 (11:26→22:35)
[2019-08-07] MEDS ORDERED: GABAPENTIN 300 MG CAPSULE (FP) PO ONE (11:59)
[2019-08-07 12:06] LABS: ANISOCYTOSIS 0; MACROCYTOSIS 0; PLATELET ESTIMATE DECREASED
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
[2019-08-07] MEDS ORDERED: METHADONE HCL 10 MG TABLET PO ONE (13:39)
--- NOTE | 2019-08-07 14:38 | PN ---
Progress Note (short form) - Note Progress Note: ID consult imp/reccd Neutropenic fever UTI etoh use ex-heroine user- on methadone hep c cirrhosis- not treated please check HIV if patient is agreeble check hep serology b/c continue zosyn f/u cultures Problem List - Problems (1) Neutropenic fever Code(s): D70.9 - NEUTROPENIA, UNSPECIFIED; R50.81 - FEVER PRESENTING WITH CONDITIONS CLASSIFIED ELSEWHERE (2) UTI (urinary tract infection) Code(s): N39.0 - URINARY TRACT INFECTION, SITE NOT SPECIFIED Qualifiers: Urinary tract infection type: site unspecified Hematuria presence: without hematuria Qualified Code(s): N39.0 - Urinary tract infection, site not specified (3) Alcohol dependence Code(s): F10.20 - ALCOHOL DEPENDENCE, UNCOMPLICATED (4) Opioid dependence Code(s): F11.20 - OPIOID DEPENDENCE, UNCOMPLICATED (5) Hepatitis C Code(s): B19.20 - UNSPECIFIED VIRAL HEPATITIS C WITHOUT HEPATIC COMA
--- NOTE | 2019-08-07 16:26 | PN ---
Physical Exam: SUBJECTIVE: Patient seen and examined PIPPA. Endorses severe cramping abdominal pain, agitation, anxiety, tremors. Last Heroin(snorted 4-5bags, ~08/05/19), Last EtOH(1-2pints, ~08/05/19). Denies fever , chills. Has malaise and low energy. OBJECTIVE: Vital Signs Period Temp Pulse Resp BP Sys/Rankin Pulse Ox Last 24 Hr 98.2 F-99.5 F 96-99 15-20 95-115/64-79 95-97 GENERAL: The patient is awake, alert, and fully oriented. Appears agitated and mild distress HEAD: NC/AT, no temporal wasting EYES: extraocular movements intact, sclera anicteric, conjunctiva clear. No ptosis. No pinpoint pupils ENT: Ears normal, nares patent, moist mucous membranes. NECK: Trachea midline, full range of motion, supple. Neg cervical LAD LUNGS: Breath sounds equal, mild b/l wheezes; no crackles, no accessory muscle use. HEART: Regular rate and rhythm, S1, S2 without murmur, rub or gallop. ABDOMEN: Soft, nontender, nondistended, normoactive bowel sounds, no guarding, no rebound. EXTREMITIES: 2+ pulses, warm, well-perfused, no edema. Left foot with amputated toe. RLE shorter than LLE NEUROLOGICAL: pressured speech, gait not observed. PSYCH: Normal mood, normal affect. SKIN: Warm, dry, normal turgor, no rashes or lesions noted Laboratory Results - last 24 hr 08/06/19 08/06/19 08/06/19 17:15 17:25 17:30 WBC Cancelled Corrected WBC (auto) Cancelled RBC Cancelled Hgb Cancelled Hct Cancelled MCV Cancelled MCH Cancelled MCHC Cancelled RDW Cancelled Plt Count Cancelled MPV Cancelled Absolute Neuts (auto) Cancelled Absolute Lymphs (auto) Cancelled Absolute Monos (auto) Cancelled Absolute Eos (auto) Cancelled Absolute Basos (auto) Cancelled Add Manual Diff Cancelled Total Counted Neutrophils % Cancelled Neutrophils % (Manual) Band Neutrophils % Lymphocytes % Cancelled Lymphocytes % (Manual) Monocytes % Cancelled Monocytes % (Manual) Eosinophils % Cancelled Eosinophils % (Manual) Basophils % Cancelled Basophils % (Manual) Myelocytes % (Man) Promyelocytes % (Man) Blast Cells % (Manual) Nucleated RBC % Cancelled Metamyelocytes Hypochromia Platelet Estimate Cancelled Platelet Comment Cancelled Normal RBC Morphology Cancelled Polychromasia Poikilocytosis Anisocytosis Microcytosis Macrocytosis PT with INR INR PTT (Actin FS) VBG pH 7.39 POC VBG pCO2 50.0 POC VBG pO2 < 49 H VBG HCO3 29.8 H VBG O2 Sat (Minor) 76.4 VBG Base Excess 4.5 H Sodium Potassium Chloride Carbon Dioxide Anion Gap BUN Creatinine Est GFR (CKD-EPI)AfAm Est GFR (CKD-EPI)NonAf Random Glucose Lactic Acid 1.3 Calcium Phosphorus Magnesium Total Bilirubin AST ALT Alkaline Phosphatase B-Natriuretic Peptide Total Protein Albumin Urine Color Urine Appearance Urine pH Ur Specific [place] Urine Protein Urine Glucose (UA) Urine Ketones Urine Blood Urine Nitrite Urine Bilirubin Urine Urobilinogen Ur Leukocyte Esterase Urine WBC (Auto) Urine RBC (Auto) Urine Casts (Auto) U Epithel Cells (Auto) Urine Bacteria (Auto) Opiates Screen Methadone Screen Barbiturate Screen Phencyclidine Screen Ur Amphetamines Screen MDMA (Ecstasy) Screen Benzodiazepines Screen Cocaine Screen U Marijuana (THC) Screen Influenza A (Rapid) Influenza B (Rapid) Blood Type Antibody Screen 08/06/19 08/06/19 08/06/19 17:50 18:00 18:10 WBC Corrected WBC (auto) RBC Hgb Hct MCV MCH MCHC RDW Plt Count MPV Absolute Neuts (auto) Absolute Lymphs (auto) Absolute Monos (auto) Absolute Eos (auto) Absolute Basos (auto) Add Manual Diff Total Counted Neutrophils % Neutrophils % (Manual) Band Neutrophils % Lymphocytes % Lymphocytes % (Manual) Monocytes % Monocytes % (Manual) Eosinophils % Eosinophils % (Manual) Basophils % Basophils % (Manual) Myelocytes % (Man) Promyelocytes % (Man) Blast Cells % (Manual) Nucleated RBC % Metamyelocytes Hypochromia Platelet Estimate Platelet Comment Normal RBC Morphology Polychromasia Poikilocytosis Anisocytosis Microcytosis Macrocytosis PT with INR 13.40 H INR 1.13 H PTT (Actin FS) 29.4 VBG pH POC VBG pCO2 POC VBG pO2 VBG HCO3 VBG O2 Sat (Minor) VBG Base Excess Sodium 139 Potassium 4.1 Chloride 104 Carbon Dioxide 32 Anion Gap 3 L BUN 14.5 Creatinine 0.7 Est GFR (CKD-EPI)AfAm 109.15 Est GFR (CKD-EPI)NonAf 94.17 Random Glucose 102 Lactic Acid Calcium 8.7 Phosphorus Magnesium Total Bilirubin 0.5 AST 29 ALT 27 Alkaline Phosphatase 150 H B-Natriuretic Peptide Total Protein 6.6 Albumin 3.0 L Urine Color Urine Appearance Urine pH Ur Specific [place] Urine Protein Urine Glucose (UA) Urine Ketones Urine Blood Urine Nitrite Urine Bilirubin Urine Urobilinogen Ur Leukocyte Esterase Urine WBC (Auto) Urine RBC (Auto) Urine Casts (Auto) U Epithel Cells (Auto) Urine Bacteria (Auto) Opiates Screen Methadone Screen Barbiturate Screen Phencyclidine Screen Ur Amphetamines Screen MDMA (Ecstasy) Screen Benzodiazepines Screen Cocaine Screen U Marijuana (THC) Screen Influenza A (Rapid) Negative Influenza B (Rapid) Negative Blood Type Antibody Screen 08/06/19 08/06/19 08/06/19 18:10 18:10 18:10 WBC 1.5 L* Corrected WBC (auto) RBC 4.12 Hgb 13.1 Hct 39.4 MCV 95.8 MCH 31.9 MCHC 33.3 RDW 13.9 Plt Count 47 L D MPV 9.3 Absolute Neuts (auto) 0.9 L Absolute Lymphs (auto) Absolute Monos (auto) Absolute Eos (auto) Absolute Basos (auto) Add Manual Diff Total Counted 100 Neutrophils % 61.2 Neutrophils % (Manual) 60.0 Band Neutrophils % 4.0 Lymphocytes % 21.6 Lymphocytes % (Manual) 22.0 Monocytes % 15.7 H Monocytes % (Manual) 14 H Eosinophils % 0.8 Eosinophils % (Manual) Basophils % 0.7 Basophils % (Manual) Myelocytes % (Man) Promyelocytes % (Man) Blast Cells % (Manual) Nucleated RBC % 0 Metamyelocytes Hypochromia Platelet Estimate Decreased Platelet Comment No clumping noted Normal RBC Morphology Polychromasia Poikilocytosis Anisocytosis Microcytosis Macrocytosis PT with INR INR PTT (Actin FS) VBG pH POC VBG pCO2 POC VBG pO2 VBG HCO3 VBG O2 Sat (Minor) VBG Base Excess Sodium Potassium Chloride Carbon Dioxide Anion Gap BUN Creatinine Est GFR (CKD-EPI)AfAm Est GFR (CKD-EPI)NonAf Random Glucose Lactic Acid Calcium Phosphorus Magnesium 2.1 Total Bilirubin AST ALT Alkaline Phosphatase B-Natriuretic Peptide 31.0 Total Protein Albumin Urine Color Urine Appearance Urine pH Ur Specific [place] Urine Protein Urine Glucose (UA) Urine Ketones Urine Blood Urine Nitrite Urine Bilirubin Urine Urobilinogen Ur Leukocyte Esterase Urine WBC (Auto) Urine RBC (Auto) Urine Casts (Auto) U Epithel Cells (Auto) Urine Bacteria (Auto) Opiates Screen Methadone Screen Barbiturate Screen Phencyclidine Screen Ur Amphetamines Screen MDMA (Ecstasy) Screen Benzodiazepines Screen Cocaine Screen U Marijuana (THC) Screen Influenza A (Rapid) Influenza B (Rapid) Blood Type AB POSITIVE Antibody Screen Negative 08/06/19 08/06/19 08/07/19 19:00 19:00 07:00 WBC Corrected WBC (auto) RBC Hgb Hct MCV MCH MCHC RDW Plt Count MPV Absolute Neuts (auto) Absolute Lymphs (auto) Absolute Monos (auto) Absolute Eos (auto) Absolute Basos (auto) Add Manual Diff Total Counted Neutrophils % Neutrophils % (Manual) Band Neutrophils % Lymphocytes % Lymphocytes % (Manual) Monocytes % Monocytes % (Manual) Eosinophils % Eosinophils % (Manual) Basophils % Basophils % (Manual) Myelocytes % (Man) Promyelocytes % (Man) Blast Cells % (Manual) Nucleated RBC % Metamyelocytes Hypochromia Platelet Estimate Platelet Comment Normal RBC Morphology Polychromasia Poikilocytosis Anisocytosis Microcytosis Macrocytosis PT with INR INR PTT (Actin FS) VBG pH POC VBG pCO2 POC VBG pO2 VBG HCO3 VBG O2 Sat (Minor) VBG Base Excess Sodium Potassium Chloride Carbon Dioxide Anion Gap BUN Creatinine Est GFR (CKD-EPI)AfAm Est GFR (CKD-EPI)NonAf Random Glucose Lactic Acid Calcium Phosphorus Magnesium Total Bilirubin AST ALT Alkaline Phosphatase B-Natriuretic Peptide Total Protein Albumin Urine Color Yellow Urine Appearance Cloudy Urine pH 7.0 Ur Specific [place] 1.019 Urine Protein 1+ H Urine Glucose (UA) Negative Urine Ketones Negative Urine Blood 1+ H Urine Nitrite Positive H Urine Bilirubin Negative Urine Urobilinogen 2.0 H Ur Leukocyte Esterase 2+ H Urine WBC (Auto) 84 Urine RBC (Auto) 25 Urine Casts (Auto) 6 U Epithel Cells (Auto) 6.3 Urine Bacteria (Auto) 4250.6 Opiates Screen Positive A* Methadone Screen Positive A* Barbiturate Screen Negative Phencyclidine Screen Negative Ur Amphetamines Screen Negative MDMA (Ecstasy) Screen Negative Benzodiazepines Screen Negative Cocaine Screen Negative U Marijuana (THC) Screen Positive A* Influenza A (Rapid) Influenza B (Rapid) Blood Type AB POSITIVE Antibody Screen 08/07/19 08/07/19 07:00 07:00 WBC 1.2 L* Corrected WBC (auto) RBC 3.53 L Hgb 11.4 Hct 33.9 MCV 95.8 MCH 32.2 MCHC 33.6 RDW 13.9 Plt Count 34 L* D MPV 9.3 Absolute Neuts (auto) 0.5 L Absolute Lymphs (auto) Absolute Monos (auto) Absolute Eos (auto) Absolute Basos (auto) Add Manual Diff Total Counted Neutrophils % 45.3 D Neutrophils % (Manual) 60.4 Band Neutrophils % 0.0 Lymphocytes % 30.3 D Lymphocytes % (Manual) 16.8 D Monocytes % 22.4 H Monocytes % (Manual) 13 H Eosinophils % 1.5 D Eosinophils % (Manual) 2.0 Basophils % 0.5 Basophils % (Manual) 0.0 Myelocytes % (Man) 0 Promyelocytes % (Man) 0 Blast Cells % (Manual) 0 Nucleated RBC % 0 Metamyelocytes 0 Hypochromia 0 Platelet Estimate Decreased Platelet Comment Normal RBC Morphology Polychromasia 0 Poikilocytosis 0 Anisocytosis 0 Microcytosis 0 Macrocytosis 0 PT with INR INR PTT (Actin FS) VBG pH POC VBG pCO2 POC VBG pO2 VBG HCO3 VBG O2 Sat (Minor) VBG Base Excess Sodium 141 Potassium 3.8 Chloride 110 H Carbon Dioxide 27 Anion Gap 4 L BUN 12.0 Creatinine 0.6 Est GFR (CKD-EPI)AfAm 114.82 Est GFR (CKD-EPI)NonAf 99.07 Random Glucose 86 Lactic Acid Calcium 8.2 L Phosphorus 4.3 Magnesium 2.2 Total Bilirubin 0.6 AST 23 ALT 21 Alkaline Phosphatase 112 B-Natriuretic Peptide Total Protein 5.5 L Albumin 2.5 L Urine Color Urine Appearance Urine pH Ur Specific [place] Urine Protein Urine Glucose (UA) Urine Ketones Urine Blood Urine Nitrite Urine Bilirubin Urine Urobilinogen Ur Leukocyte Esterase Urine WBC (Auto) Urine RBC (Auto) Urine Casts (Auto) U Epithel Cells (Auto) Urine Bacteria (Auto) Opiates Screen Methadone Screen Barbiturate Screen Phencyclidine Screen Ur Amphetamines Screen MDMA (Ecstasy) Screen Benzodiazepines Screen Cocaine Screen U Marijuana (THC) Screen Influenza A (Rapid) Influenza B (Rapid) Blood Type Antibody Screen Active Medications Generic Name Dose Route Start Last Admin Trade Name Freq PRN Reason Stop Dose Admin Albuterol/Ipratropium 1 amp 08/07/19 08:00 08/07/19 15:32 Duoneb - NEB Not Given RQID EMELINA Piperacillin Sod/Tazobactam 100 mls @ 200 mls/hr 08/07/19 18:00 Sod 4.5 gm/ Dextrose IVPB Q8H-IV EMELINA Protocol Lorazepam 0.5 mg 08/09/19 05:00 Ativan - PO 08/09/19 23:01 Q6H EMELINA Lorazepam 0.5 mg 08/09/19 00:00 Ativan - PO 08/09/19 23:59 Q4H PRN Symptoms of Withdrawal Lorazepam 0.5 mg 08/10/19 05:00 Ativan - PO 08/10/19 05:01 ONCE ONE Lorazepam 1 mg 08/08/19 05:00 Ativan - PO 08/08/19 23:01 0500,1100,1700,2300 EMELINA Lorazepam 1 mg 08/06/19 22:11 08/07/19 08:30 Ativan - PO 08/08/19 23:59 1 mg Q4H PRN Administration Symptoms of Withdrawal Lorazepam 2 mg 08/07/19 11:30 08/07/19 11:26 Ativan - PO 08/07/19 23:01 2 mg 0500,1100,1700,2300 EMELINA Administration Methadone HCl 30 mg 08/08/19 06:00 Dolophine - PO DAILY@0600 [facility] Thiamine HCl 200 mg 08/07/19 10:00 08/07/19 09:35 Vitamin B1 Injection - IVPB 200 mg DAILY EMELINA Administration ASSESSMENT/PLAN: 59 yo F PMH COPD, HCV(s/p Harvoni), cirrhosis, substance abuse(heroin & alcohol - last use 2 days prior to admission) transferred from [facility] for leukopenia , thrombocytopenia. Pt had presenting complaint of fever, chills, malaise, burning pain with urination. Pt admitted for sepsis 2/2 UTI # Sepsis 2/2 UTI > UA: protein 1+, blood 1+, nitrite +, LE 2+, WBC 84, bact 4250 > UCX(08/06/19) --pending > BCX(08/06/19) --pending > renal and bladder U/s --pending > CXR: spine and Right shoulder w/ degenerative changes, deformed distal clavicles(chronic) - [facility]/ED: 101.8F, vanc + zosyn, ofirmev x1, duoneb x5, NS @2L - ID(Vitaliy) recs appreciated: -- fu HIV -- abx regimen: vancomycin stopped; zosyn, day #2 #Leukopenia, thrombocytopenia - likely 2/2 alcohol abuse and cirrhosis - pending HIV testing - neutropenia precautions # Acute toxic metabolic encephalopathy > CTH(08/06/19): neg for intracranial path. Microvascular disease noted. 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 I reviewed the resident's note and discussed the case with the resident. I agree with the resident's findings and plan as documented. SUBJECTIVE: OBJECTIVE: ASSESSMENT AND PLAN:
[2019-08-07] MEDS ORDERED: POTASSIUM CHLORIDE TABS 20 MEQ TABLET.ER (FP) PO ONE (16:50)
[2019-08-07] MEDS ORDERED: PIPERACILLIN/TAZOBACTAM 4.5 GM VIAL IVPB ONE (17:14)
[2019-08-07] MEDS ORDERED: DEXTROSE 5%-WATER 100 ML IVPB ONE (17:14)
[2019-08-07] MEDS: PIPERACILLIN/TAZOB 4.5 GM 4.5 GM in DEXTROSE 5%-WATER 100 ML IVPB SCH (17:19)
--- NOTE | 2019-08-07 17:23 | PN ---
Teaching Attending Note Name of Resident: Ovi Mehta ATTENDING PHYSICIAN STATEMENT I saw and evaluated the patient. I reviewed the resident's note and discussed the case with the resident. I agree with the resident's findings and plan as documented. SUBJECTIVE: Patient is comfortable with no acute distress. lying in bed. c/o of withdrawel on methadone now. OBJECTIVE: Vital Signs Temperature 98.2 F 08/07/19 14:00 Pulse Rate 96 H 08/07/19 14:00 Respiratory Rate 20 08/07/19 14:00 Blood Pressure 115/79 08/07/19 14:00 O2 Sat by Pulse Oximetry (%) 97 08/07/19 09:00 GENERAL: The patient is awake, alert, and fully oriented, in no acute distress. HEAD: Normal with no signs of trauma. EYES: PERRL, extraocular movements intact, sclera anicteric, conjunctiva clear. ENT: Ears normal, oropharynx clear without exudates, moist mucous membranes. NECK: Trachea midline, full range of motion, supple. LUNGS: Breath sounds equal, clear to auscultation bilaterally, no wheezes, no crackles, no accessory muscle use. HEART: Regular rate and rhythm, S1, S2 without murmur, rub or gallop. ABDOMEN: Soft, NT,ND, normoactive bowel sounds, no guarding, no rebound, no hepatosplenomegaly, no masses. EXTREMITIES: 2+ pulses, warm, well-perfused, no edema. NEUROLOGICAL: Cranial nerves II through XII grossly intact. Normal speech, gait not observed. PSYCH: Normal mood, normal affect. SKIN: Warm, dry, normal turgor, no rashes or lesions noted CBCD WBC 1.2 K/mm3 (4.0-10.0) L* 08/07/19 07:00 RBC 3.53 M/mm3 (3.60-5.2) L 08/07/19 07:00 Hgb 11.4 GM/dL (10.7-15.3) 08/07/19 07:00 Hct 33.9 % (32.4-45.2) 08/07/19 07:00 MCV 95.8 fl (80-96) 08/07/19 07:00 MCHC 33.6 g/dl (32.0-36.0) 08/07/19 07:00 RDW 13.9 % (11.6-15.6) 08/07/19 07:00 Plt Count 34 K/MM3 (134-434) L* D 08/07/19 07:00 MPV 9.3 fl (7.5-11.1) 08/07/19 07:00 CMP Sodium 141 mmol/L (136-145) 08/07/19 07:00 Potassium 3.8 mmol/L (3.5-5.1) 08/07/19 07:00 Chloride 110 mmol/L (98-107) H 08/07/19 07:00 Carbon Dioxide 27 mmol/L (21-32) 08/07/19 07:00 Anion Gap 4 MMOL/L (8-16) L 08/07/19 07:00 BUN 12.0 mg/dL (7-18) 08/07/19 07:00 Creatinine 0.6 mg/dL (0.55-1.3) 08/07/19 07:00 Random Glucose 86 mg/dL (74-106) 08/07/19 07:00 Calcium 8.2 mg/dL (8.5-10.1) L 08/07/19 07:00 Total Bilirubin 0.6 mg/dL (0.2-1) 08/07/19 07:00 AST 23 U/L (15-37) 08/07/19 07:00 ALT 21 U/L (13-61) 08/07/19 07:00 Alkaline Phosphatase 112 U/L (45-117) 08/07/19 07:00 Total Protein 5.5 g/dl (6.4-8.2) L 08/07/19 07:00 Albumin 2.5 g/dl (3.4-5.0) L 08/07/19 07:00 Current Medications Generic Name Dose Route Start Last Admin Trade Name Freq PRN Reason Stop Dose Admin Albuterol/Ipratropium 1 amp 08/07/19 08:00 08/07/19 15:32 Duoneb - NEB Not Given RQID EMELINA Piperacillin Sod/Tazobactam 100 mls @ 200 mls/hr 08/07/19 18:00 08/07/19 17: 19 Sod 4.5 gm/ Dextrose IVPB 200 mls/hr Q8H-IV EMELINA Administration Protocol Lorazepam 0.5 mg 08/09/19 05:00 Ativan - PO 08/09/19 23:01 Q6H EMELINA Lorazepam 0.5 mg 08/09/19 00:00 Ativan - PO 08/09/19 23:59 Q4H PRN Symptoms of Withdrawal Lorazepam 0.5 mg 08/10/19 05:00 Ativan - PO 08/10/19 05:01 ONCE ONE Lorazepam 1 mg 08/08/19 05:00 Ativan - PO 08/08/19 23:01 0500,1100,1700,2300 EMELINA Lorazepam 1 mg 08/06/19 22:11 08/07/19 08:30 Ativan - PO 08/08/19 23:59 1 mg Q4H PRN Administration Symptoms of Withdrawal Lorazepam 2 mg 08/07/19 11:30 08/07/19 17:13 Ativan - PO 08/07/19 23:01 Not Given 0500,1100,1700,2300 [facility] Methadone HCl 30 mg 08/08/19 06:00 Dolophine - PO DAILY@0600 [facility] Thiamine HCl 200 mg 08/07/19 10:00 08/07/19 09:35 Vitamin B1 Injection - IVPB 200 mg DAILY [facility] Administration Home Medications Medication Instructions Recorded Baclofen 20 mg PO TID 08/05/19 Diphenhydramine [Benadryl -] 50 mg PO TID PRN 08/05/19 Folic Acid 1 mg PO DAILY 08/05/19 Gabapentin 600 mg PO TID 08/05/19 Multivitamin [One-Daily 1 each PO DAILY 08/05/19 Multi-Vitamin] Zolpidem Tartrate [Ambien] 5 mg PO HS 08/05/19 renal and bladder U/s --pending CXR: spine and Right shoulder w/ degenerative changes, deformed distal clavicles (chronic ASSESSMENT AND PLAN: Patient is a 59yof with PMHx of COPD, HCV(s/p Mireyaoni), cirrhosis, substance abuse(heroin & alcohol) last use 2 days prior to admission, transferred from [facility] for leukopenia, thrombocytopenia. Admitted for sepsis due to UTI. 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
--- NOTE | 2019-08-07 19:27 | CONS ---
DATE OF CONSULTATION: DATE OF DICTATION: 08/07/2019 INFECTIOUS DISEASE CONSULTATION REQUESTING PHYSICIAN: Ton Garcia M.D. HISTORY OF PRESENT ILLNESS: This is a 59-year-old woman who presented to detox yesterday, where she was noted to be leukopenic. She then had a fever of 101 and was transferred to the hospital. Her past medical history is notable for former substance use. She apparently was in the hospital for 6 weeks for IV antibiotics after a partial 2nd toe amputation. She was on methadone at that time. After discharge she was not able to enroll in a methadone program as she was actively using alcohol, and she presented to the detox program for alcohol detox. At the same time she was noted to be leukopenic, then had a fever of 101.5 and was sent to the hospital. When I am seeing her, she is describing having active withdrawal with pains all over. She denies any more fever. She has no respiratory symptoms. She does complain of dysuria for the last several days. PAST MEDICAL HISTORY: Notable for COPD and liver cirrhosis. She has a history of hepatitis C. Per the detox people, she has been cured. She told me that she has not been treated for her hepatitis C. She is an active alcohol user. She drinks 1 to 2 pints a day. No history of seizures or DTs. She is a heroin user via inhalation. She does not use IV drugs. She states she is HIV negative. Denies any history of hepatitis B or TB. Her past medical history as well is notable for the recent left 2nd toe amputation. ALLERGIES: CIPRO, FISH-CONTAINING PRODUCTS, CHOCOLATE AND COFFEE. SOCIAL HISTORY: She is currently staying in a jail. There is no history of any recent travel. FAMILY HISTORY: Notable for colon cancer in her mother and lung cancer in her father. REVIEW OF SYSTEMS: Notable for diffuse body myalgia which she attributes to withdrawal. PHYSICAL EXAMINATION: Vital Signs: Her temperature is 98.2. Her Tmax was 101.8, which was on the 31st. Pulse 96, blood pressure 115/79, respiratory rate 20. HEENT: She is normocephalic. Her eyes are anicteric. Neck: Supple. Lungs: Clear to auscultation. Heart: Regular rate and rhythm. Abdomen: Soft, nontender. Extremities: Without edema. Skin: Intact. She has no skin ulcers or breakdown. DIAGNOSTIC STUDIES: Her white count is 1.2, hemoglobin 11.4, platelets 34,000. ANC is 500. BUN 12, creatinine 0.6. LFTs are normal. Urinalysis has 2+ leukocytes with 84 white cells. Her influenza screen is negative, and her RPR is negative. HIV testing has been ordered. SUMMARY: This is a 59-year-old woman admitted with neutropenic fever, urinary tract infection, alcohol use, ex-heroin user (on methadone), hepatitis C/cirrhosis which she states is not treated. I would please check an HIV and the patient is agreeable. We will check hepatitis C and B serology. Would continue Zosyn. Can stop the vancomycin, and follow up her cultures. She should be in neutropenic isolation during her admission. KEVIN PANIAGUA M.D. [id number]
[2019-08-08] MEDS: PIPERACILLIN/TAZOB 2.25 GM 2.25 GM in DEXTROSE 5%-WATER - 50 ML IVPB SCH (01:06)
[2019-08-08] MEDS ORDERED: PIPERACILLIN/TAZOBACTAM 4.5 GM VIAL IVPB ONE ×3 (01:43→17:46)
[2019-08-08] MEDS ORDERED: DEXTROSE 5%-WATER 100 ML IVPB ONE ×3 (01:44→17:47)
[2019-08-08] MEDS: PIPERACILLIN/TAZOB 4.5 GM 4.5 GM in DEXTROSE 5%-WATER 100 ML IVPB SCH ×3 (01:47→17:57)
[2019-08-08] MEDS ORDERED: diphenhydrAMINE HCL 25 MG CAPSULE (FP) PO ONE ×2 (03:25→23:15)
[2019-08-08] MEDS: LORazepam 1 MG TABLET PO SCH ×4 (04:22→22:02)
[2019-08-08] MEDS ORDERED: ACETAMINOPHEN 325 MG TABLET (FP) PO ONE (06:23)
[2019-08-08] MEDS: METHADONE HCL 10 MG TABLET PO SCH (07:19)
[2019-08-08 07:52] LABS: BASO % 0.5 % (0-2.0); HEMATOCRIT 37.1 % (32.4-45.2); HEMOGLOBIN 12.5 GM/dL (10.7-15.3); MCH 31.9 pg (25.7-33.7); MCHC 33.6 g/dl (32.0-36.0); MEAN CELL VOLUME 94.7 fl (80-96); MEAN PLT VOLUME 9.6 fl (7.5-11.1); MONO % 15.4 % (3.8-10.2); NEUT % 42.1 % (42.8-82.8); PLATELET COUNT 38 K/MM3 (134-434); RBC 3.92 M/mm3 (3.60-5.2)
[2019-08-08 08:01] LABS: BLOOD UREA NITROGEN 9.6 mg/dL (7-18); CALCIUM 8.8 mg/dL (8.5-10.1); CREATININE 0.6 mg/dL (0.55-1.3); MAGNESIUM 2.1 mg/dL (1.8-2.4); PHOSPHOROUS 4.7 mg/dL (2.5-4.9); POTASSIUM 4.2 mmol/L (3.5-5.1)
[2019-08-08] MEDS: ALBUTEROL SO4 2.5/IPRATROPIUM 0.5 INH SOL 3 ML VIAL.NEB. NEB SCH ×4 (08:26→20:15)
[2019-08-08 08:45] LABS: WHITE BLOOD COUNT 1.4 K/mm3 (4.0-10.0)
[2019-08-08] MEDS: MULTIVITAMINS (DAILY MVI) TABLET (FP) PO SCH (09:44)
[2019-08-08] MEDS: THIAMINE HCL 200 MG/2 ML VIAL IVPB SCH (09:45)
--- NOTE | 2019-08-08 10:26 | CONSULT ---
Consultation: REQUESTING PROVIDER:primary team CONSULT REQUEST: We have been asked to medically evaluate this patient for ( leukopenia and thrombocytopenia ). HISTORY OF PRESENT ILLNESS: 59 yo F PMH COPD, HCV (s/p tx) , cirrhosis, substance abuse ( heroin , alcohol- last use 2 days ago) presents from [facility] for leukopenia, thrombocytopenia. pt states that she has been having lower abdominal pain since last night. pt states that shes also been having dysuria for 4 days. pt is a poor historian and very lethargic. we were consulted for thrombocytopenia dn leuckopenia Family History: Mother- Colon Ca, Father lung ca, aunt breast cancer PAST MEDICAL HISTORY: COPD, HCV (s/p tx) , cirrhosis, substance abuse ( heroin , alcohol- last use 2 days ago) PAST SURGICAL HISTORY: L 2nd toe amputation tubal legation B?l carpal tunnel syndrome Social History: Smokin PPD since age of 9 cut down to 1/2 pk/ recently Alcohol:last drink 2 days ago, pint of vodka daily Drugs: methadone, heroin REVIEW OF SYSTEMS: CONSTITUTIONAL: Absent: fever, chills, diaphoresis, generalized weakness, malaise, loss of appetite, weight change HEENT: Absent: rhinorrhea, nasal congestion, throat pain, throat swelling, difficulty swallowing, mouth swelling, ear pain, eye pain, visual changes CARDIOVASCULAR: Absent: chest pain, syncope, palpitations, irregular heart rate, lightheadedness , peripheral edema RESPIRATORY: Absent: cough, shortness of breath, dyspnea with exertion, orthopnea, wheezing, stridor, hemoptysis GASTROINTESTINAL: Absent: abdominal pain, abdominal distension, nausea, vomiting, diarrhea, constipation, melena, hematochezia GENITOURINARY: Absent: dysuria, frequency, urgency, hesitancy, hematuria, flank pain, genital pain MUSCULOSKELETAL: Absent: myalgia, arthralgia, joint swelling, back pain, neck pain SKIN: Absent: rash, itching, pallor HEMATOLOGIC/IMMUNOLOGIC: Absent: easy bleeding, easy bruising, lymphadenopathy, frequent infections ENDOCRINE: Absent: unexplained weight gain, unexplained weight loss, heat intolerance, cold intolerance NEUROLOGIC: Absent: headache, focal weakness or paresthesias, dizziness, unsteady gait, seizure, mental status changes, bladder or bowel incontinence PSYCHIATRIC: Absent: anxiety, depression, suicidal or homicidal ideation, hallucinations. PHYSICAL EXAMINATION Vital Signs - 24 hr 08/07/19 08/07/19 08/07/19 14:00 20:00 21:00 Temperature 98.2 F 97.4 F L Pulse Rate 96 H 93 H Respiratory 20 20 Rate Blood Pressure 115/79 130/84 O2 Sat by Pulse 99 Oximetry (%) 08/08/19 08/08/19 07:00 09:00 Temperature 98.4 F 97.8 F Pulse Rate 89 87 Respiratory 18 18 Rate Blood Pressure 115/82 108/65 O2 Sat by Pulse Oximetry (%) GENERAL: Awake, alert, and fully oriented, in no acute distress. HEAD: Normal with no signs of trauma. EYES: Pupils equal, round and reactive to light, extraocular movements intact, sclera anicteric, EARS, NOSE, THROAT: Ears normal, nares patent, oropharynx clear without exudates. Moist mucous membranes.no oral thrush , no mucositis NECK: , supple without lymphadenopathy, Breast no masses or lump apreciated Nodes : no submandibular axillary or inguinal lymph node enlarged felt LUNGS:coarse breath sounds , expiratory wheezing HEART: Regular rate and rhythm, normal S1 and S2 without murmur, rub or gallop. ABDOMEN: Soft, nontender, not distended, normoactive bowel sounds, no guarding, no rebound UPPER EXTREMITIES: 2+ pulses, warm, well-perfused. No cyanosis. Cap refill <2 seconds. No peripheral edema.right arm limited ROM due to pain and recent fall at [facility] per pt LOWER EXTREMITIES: 2+ pulses, warm, well-perfused. No calf tenderness. No peripheral edema. right leg limited ROM due to pain NEUROLOGICAL: no focal deficit, no nystagmus no tremotr , Normal speech PSYCHIATRIC: Cooperative. SKIN: Warm, dry, normal turgor, forhead left side hypopigmented spot Laboratory Results - last 24 hr 08/07/19 08/08/19 08/08/19 07:00 06:55 06:55 WBC 1.4 L* RBC 3.92 Hgb 12.5 Hct 37.1 MCV 94.7 MCH 31.9 MCHC 33.6 RDW 14.0 Plt Count 38 L MPV 9.6 Absolute Neuts (auto) 0.6 L Neutrophils % 42.1 L Neutrophils % (Manual) 60.4 Band Neutrophils % 0.0 Lymphocytes % 40.0 D Lymphocytes % (Manual) 16.8 D Monocytes % 15.4 H Monocytes % (Manual) 13 H Eosinophils % 2.0 Eosinophils % (Manual) 2.0 Basophils % 0.5 Basophils % (Manual) 0.0 Myelocytes % (Man) 0 Promyelocytes % (Man) 0 Blast Cells % (Manual) 0 Nucleated RBC % 0 0 Metamyelocytes 0 Hypochromia 0 Platelet Estimate Decreased Polychromasia 0 Poikilocytosis 0 Anisocytosis 0 Microcytosis 0 Macrocytosis 0 Sodium 139 Potassium 4.2 Chloride 106 Carbon Dioxide 28 Anion Gap 5 L BUN 9.6 Creatinine 0.6 Est GFR (CKD-EPI)AfAm 114.82 Est GFR (CKD-EPI)NonAf 99.07 Random Glucose 86 Calcium 8.8 Phosphorus 4.7 Magnesium 2.1 Active Medications Generic Name Dose Route Start Last Admin Trade Name Freq PRN Reason Stop Dose Admin Albuterol/Ipratropium 1 amp 08/07/19 08:00 08/08/19 08:26 Duoneb - NEB 1 amp RQID EMELINA Administration Piperacillin Sod/Tazobactam 100 mls @ 200 mls/hr 08/07/19 18:00 08/08/19 09: 45 Sod 4.5 gm/ Dextrose IVPB 200 mls/hr Q8H-IV EMELINA Administration Protocol Lorazepam 0.5 mg 08/09/19 05:00 Ativan - PO 08/09/19 23:01 Q6H EMELINA Lorazepam 0.5 mg 08/09/19 00:00 Ativan - PO 08/09/19 23:59 Q4H PRN Symptoms of Withdrawal Lorazepam 0.5 mg 08/10/19 05:00 Ativan - PO 08/10/19 05:01 ONCE ONE Lorazepam 1 mg 08/08/19 05:00 08/08/19 04:22 Ativan - PO 08/08/19 23:01 1 mg 0500,1100,1700,2300 EMELINA Administration Lorazepam 1 mg 08/06/19 22:11 08/07/19 08:30 Ativan - PO 08/08/19 23:59 1 mg Q4H PRN Administration Symptoms of Withdrawal Methadone HCl 30 mg 08/08/19 06:00 08/08/19 07:19 Dolophine - PO 30 mg DAILY@0600 EMELINA Administration Multivitamins/Minerals/Vitamin C 1 tab 08/08/19 10:00 08/08/19 09:44 Tab-A-Vit - PO 1 tab DAILY EMELINA Administration Thiamine HCl 200 mg 08/07/19 10:00 08/08/19 09:45 Vitamin B1 Injection - IVPB 200 mg DAILY EMELINA Administration CBC, BMP 08/08/19 06:55 08/08/19 06:55 ASSESSMENT/PLAN: 59 yo F PMH COPD, HCV (s/p tx) , cirrhosis, substance abuse ( heroin , alcohol- last use 2 days ago) presents from [facility] for leukopenia, thrombocytopenia. pt states that she has been having lower abdominal pain since last night. pt states that shes also been having dysuria for 4 days. pt is a poor historian and very lethargic. we ere consulted for thrombocytopenia and neutropenia # neutropenia # Thrombocytopenia , monitor for any signs of bleeding * likley due to alcoholic cirrhosis (ETOH effect direct and indirect bone marrow suppression) vs sepsis 2/2 UTI * monitor cbc daily * waller cx * cont abx * consult ID * NO NSAIDS , No Lovenox or chemical prophylaxis as plt below 50K * neutropenic precautions * thiamin ,folic acid , CIWA protocol * influenza A, B negative , HiV pending * Alcohol cessation # history of Hepc S/P Harvoni # Subtance abuse heroin, methadon , marijuana # Etoh abuse # Right arm pain , images and treatment per primary team Dispo: We will continue to follow the patient. Thank you for this consultative opportunity. Visit type - Emergency Visit Emergency Visit: Yes ED Registration Date: 08/06/19 Care time: The patient presented to the Emergency Department on the above date and was hospitalized for further evaluation of their emergent condition. - New Patient This patient is new to me today: Yes Date on this admission: 08/08/19 - Critical Care Critical Care patient: No ATTENDING PHYSICIAN STATEMENT I saw and evaluated the patient. I reviewed the resident's note and discussed the case with the resident. I agree with the resident's findings and plan as documented. SUBJECTIVE: OBJECTIVE: ASSESSMENT AND PLAN:
--- NOTE | 2019-08-08 13:27 | EKG ---
Test Reason : Blood Pressure : / mmHG Vent. Rate : 096 BPM Atrial Rate : 096 BPM P-R Int : 186 ms QRS Dur : 092 ms QT Int : 376 ms P-R-T Axes : 057 044 050 degrees QTc Int : 475 ms NORMAL SINUS RHYTHM NORMAL ECG WHEN COMPARED WITH ECG OF 05-AUG-2019 19:34, NONSPECIFIC T WAVE ABNORMALITY NO LONGER EVIDENT IN ANTERIOR LEADS Confirmed by ELZA FARRAR MD ([id number]) on 08/08/2019 1:26:58 PM Referred By: Confirmed By:ELZA FARRAR MD
--- NOTE | 2019-08-08 14:36 | PN ---
Physical Exam: SUBJECTIVE: Patient seen and examined MARKON. Denies fever, chills, pain with urination, abd pain, LAD, recent hikes. When asked, states that she has known history of thrombocytopenia; never dx w/ neutropenia. Last Heroin(snorted 4-5bags, ~08/05/19), Last EtOH(1-2pints, ~08/05) OBJECTIVE: Vital Signs Period Temp Pulse Resp BP Sys/Rankin Pulse Ox Last 24 Hr 97.4 F-98.4 F 87-93 18-20 108-130/65-84 99-99 GENERAL: The patient is lethargic, and fully oriented. HEAD: NC/AT, no temporal wasting EYES: extraocular movements intact, sclera anicteric, conjunctiva clear. No ptosis. ENT: Ears normal, nares patent, moist mucous membranes. NECK: Trachea midline, full range of motion, supple. Neg cervical LAD LUNGS: Breath sounds equal, mild b/l wheezes; no crackles, no accessory muscle use. No rash on chest HEART: Regular rate and rhythm, S1, S2 without murmur, rub or gallop. ABDOMEN: Soft, nontender, nondistended, normoactive bowel sounds, no guarding, no rebound. No rash on abd EXTREMITIES: 2+ pulses, warm, well-perfused, no edema. 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 RLE shorter and slightly smaller than LLE NEUROLOGICAL: lethargic, oriented, gait not observed. PSYCH: Normal mood, normal affect. SKIN: Warm, dry, normal turgor, no rashes or lesions noted Laboratory Results - last 24 hr 08/08/19 08/08/19 06:55 06:55 WBC 1.4 L* RBC 3.92 Hgb 12.5 Hct 37.1 MCV 94.7 MCH 31.9 MCHC 33.6 RDW 14.0 Plt Count 38 L MPV 9.6 Absolute Neuts (auto) 0.6 L Neutrophils % 42.1 L Lymphocytes % 40.0 D Monocytes % 15.4 H Eosinophils % 2.0 Basophils % 0.5 Nucleated RBC % 0 Sodium 139 Potassium 4.2 Chloride 106 Carbon Dioxide 28 Anion Gap 5 L BUN 9.6 Creatinine 0.6 Est GFR (CKD-EPI)AfAm 114.82 Est GFR (CKD-EPI)NonAf 99.07 Random Glucose 86 Calcium 8.8 Phosphorus 4.7 Magnesium 2.1 Active Medications Generic Name Dose Route Start Last Admin Trade Name Freq PRN Reason Stop Dose Admin Albuterol/Ipratropium 1 amp 08/07/19 08:00 08/08/19 11:51 Duoneb - NEB 1 amp RQID EMELINA Administration Piperacillin Sod/Tazobactam 100 mls @ 200 mls/hr 08/07/19 18:00 08/08/19 09: 45 Sod 4.5 gm/ Dextrose IVPB 200 mls/hr Q8H-IV EMELINA Administration Protocol Lorazepam 0.5 mg 08/09/19 05:00 Ativan - PO 08/09/19 23:01 Q6H EMELINA Lorazepam 0.5 mg 08/09/19 00:00 Ativan - PO 08/09/19 23:59 Q4H PRN Symptoms of Withdrawal Lorazepam 0.5 mg 08/10/19 05:00 Ativan - PO 08/10/19 05:01 ONCE ONE Lorazepam 1 mg 08/08/19 05:00 08/08/19 12:06 Ativan - PO 08/08/19 23:01 1 mg 0500,1100,1700,2300 EMELINA Administration Lorazepam 1 mg 08/06/19 22:11 08/07/19 08:30 Ativan - PO 08/08/19 23:59 1 mg Q4H PRN Administration Symptoms of Withdrawal Methadone HCl 30 mg 08/08/19 06:00 08/08/19 07:19 Dolophine - PO 30 mg DAILY@0600 EMELINA Administration Multivitamins/Minerals/Vitamin C 1 tab 08/08/19 10:00 08/08/19 09:44 Tab-A-Vit - PO 1 tab DAILY EMELINA Administration Thiamine HCl 200 mg 08/07/19 10:00 08/08/19 09:45 Vitamin B1 Injection - IVPB 200 mg DAILY EMELINA Administration ASSESSMENT/PLAN: 59 yo F PMH COPD, HCV(s/p Harvoni), cirrhosis, substance abuse(heroin & alcohol - last use 2 days prior to admission) transferred from [facility] for leukopenia , thrombocytopenia. Pt had presenting complaint of fever, chills, malaise, burning pain with urination. Pt admitted for sepsis 2/2 UTI # Sepsis 2/2 UTI > UA: protein 1+, blood 1+, nitrite +, LE 2+, WBC 84, bact 4250 > UCX(08/06/19) --kidneys unremarkable; splenomegaly > BCX(08/06/19) --kidneys unremarkable; splenomegaly > renal and bladder U/s --pending > CXR: spine and Right shoulder w/ degenerative changes, deformed distal clavicles(chronic) - [facility]/ED: 101.8F, vanc + zosyn, ofirmev x1, duoneb x5, NS @2L - ID(Vitaliy) recs appreciated: -- fu HIV -- abx regimen: vancomycin stopped; zosyn, day #3 #Leukopenia, thrombocytopenia - likely 2/2 alcohol abuse and cirrhosis - pending HIV testing - neutropenia precautions - Obtain records from [facility] --pending - Heme(Cris) consult: --recs pending # Acute toxic metabolic encephalopathy > CTH(08/06/19): neg for intracranial path. Microvascular disease noted. 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 I reviewed the resident's note and discussed the case with the resident. I agree with the resident's findings and plan as documented. SUBJECTIVE: OBJECTIVE: ASSESSMENT AND PLAN:
--- NOTE | 2019-08-08 20:36 | PN ---
Teaching Attending Note Name of Resident: Ovi Mehta ATTENDING PHYSICIAN STATEMENT I saw and evaluated the patient. I reviewed the resident's note and discussed the case with the resident. I agree with the resident's findings and plan as documented. SUBJECTIVE: Patient is feeling better with no acute distress, on isolation now Vital Signs Temperature 98.3 F 08/08/19 16:20 Pulse Rate 95 H 08/08/19 16:20 Respiratory Rate 20 08/08/19 16:20 Blood Pressure 90/62 08/08/19 16:20 O2 Sat by Pulse Oximetry (%) 99 08/08/19 10:00 GENERAL: The patient is awake, alert, and fully oriented, in no acute distress. HEAD: Normal with no signs of trauma. EYES: PERRL, extraocular movements intact, sclera anicteric, conjunctiva clear. ENT: Ears normal, oropharynx clear without exudates, moist mucous membranes. NECK: Trachea midline, full range of motion, supple. LUNGS: Breath sounds equal, clear to auscultation bilaterally, no wheezes, no crackles, no accessory muscle use. HEART: Regular rate and rhythm, S1, S2 without murmur, rub or gallop. ABDOMEN: Soft, NT,ND, normoactive bowel sounds, no guarding, no rebound, no hepatosplenomegaly, no masses. EXTREMITIES: 2+ pulses, warm, well-perfused, no edema. NEUROLOGICAL: Cranial nerves II through XII grossly intact. Normal speech, gait not observed. PSYCH: Normal mood, normal affect. SKIN: Warm, dry, normal turgor, no rashes or lesions noted CBCD WBC 1.4 K/mm3 (4.0-10.0) L* 08/08/19 06:55 RBC 3.92 M/mm3 (3.60-5.2) 08/08/19 06:55 Hgb 12.5 GM/dL (10.7-15.3) 08/08/19 06:55 Hct 37.1 % (32.4-45.2) 08/08/19 06:55 MCV 94.7 fl (80-96) 08/08/19 06:55 MCHC 33.6 g/dl (32.0-36.0) 08/08/19 06:55 RDW 14.0 % (11.6-15.6) 08/08/19 06:55 Plt Count 38 K/MM3 (134-434) L 08/08/19 06:55 MPV 9.6 fl (7.5-11.1) 08/08/19 06:55 CMP Sodium 139 mmol/L (136-145) 08/08/19 06:55 Potassium 4.2 mmol/L (3.5-5.1) 08/08/19 06:55 Chloride 106 mmol/L (98-107) 08/08/19 06:55 Carbon Dioxide 28 mmol/L (21-32) 08/08/19 06:55 Anion Gap 5 MMOL/L (8-16) L 08/08/19 06:55 BUN 9.6 mg/dL (7-18) 08/08/19 06:55 Creatinine 0.6 mg/dL (0.55-1.3) 08/08/19 06:55 Random Glucose 86 mg/dL (74-106) 08/08/19 06:55 Calcium 8.8 mg/dL (8.5-10.1) 08/08/19 06:55 Total Bilirubin 0.6 mg/dL (0.2-1) 08/07/19 07:00 AST 23 U/L (15-37) 08/07/19 07:00 ALT 21 U/L (13-61) 08/07/19 07:00 Alkaline Phosphatase 112 U/L (45-117) 08/07/19 07:00 Total Protein 5.5 g/dl (6.4-8.2) L 08/07/19 07:00 Albumin 2.5 g/dl (3.4-5.0) L 08/07/19 07:00 Current Medications Generic Name Dose Route Start Last Admin Trade Name Freq PRN Reason Stop Dose Admin Albuterol/Ipratropium 1 amp 08/07/19 08:00 08/08/19 15:55 Duoneb - NEB 1 amp RQID EMELINA Administration Piperacillin Sod/Tazobactam 100 mls @ 200 mls/hr 08/07/19 18:00 08/08/19 17: 57 Sod 4.5 gm/ Dextrose IVPB 200 mls/hr Q8H-IV EMELINA Administration Protocol Lorazepam 0.5 mg 08/09/19 05:00 Ativan - PO 08/09/19 23:01 Q6H EMELINA Lorazepam 0.5 mg 08/09/19 00:00 Ativan - PO 08/09/19 23:59 Q4H PRN Symptoms of Withdrawal Lorazepam 0.5 mg 08/10/19 05:00 Ativan - PO 08/10/19 05:01 ONCE ONE Lorazepam 1 mg 08/08/19 05:00 08/08/19 17:52 Ativan - PO 08/08/19 23:01 1 mg 0500,1100,1700,2300 EMELINA Administration Lorazepam 1 mg 08/06/19 22:11 08/07/19 08:30 Ativan - PO 08/08/19 23:59 1 mg Q4H PRN Administration Symptoms of Withdrawal Methadone HCl 30 mg 08/08/19 06:00 08/08/19 07:19 Dolophine - PO 30 mg DAILY@0600 EMELINA Administration Multivitamins/Minerals/Vitamin C 1 tab 08/08/19 10:00 08/08/19 09:44 Tab-A-Vit - PO 1 tab DAILY EMELINA Administration Thiamine HCl 200 mg 08/07/19 10:00 08/08/19 09:45 Vitamin B1 Injection - IVPB 200 mg DAILY EMELINA Administration Home Medications Medication Instructions Recorded Baclofen 20 mg PO TID 08/05/19 Diphenhydramine [Benadryl -] 50 mg PO TID PRN 08/05/19 Folic Acid 1 mg PO DAILY 08/05/19 Gabapentin 600 mg PO TID 08/05/19 Multivitamin [One-Daily 1 each PO DAILY 08/05/19 Multi-Vitamin] Zolpidem Tartrate [Ambien] 5 mg PO HS 08/05/19 Microbiology 08/06/19 17:30 Blood - Peripheral Venous Blood Culture - Preliminary NO GROWTH OBTAINED AFTER 72 HOURS, INCUBATION TO CONTINUE FOR 2 DAYS. 08/06/19 17:10 Blood - Peripheral Venous Blood Culture - Preliminary NO GROWTH OBTAINED AFTER 72 HOURS, INCUBATION TO CONTINUE FOR 2 DAYS. 08/06/19 19:00 Urine - Urine Clean Catch Urine Culture - Final Escherichia Coli Esbl Broadcaster ASSESSMENT AND PLAN: Patient is a 59yof with PMHx of COPD, HCV(s/p Harvoni), cirrhosis, substance abuse(heroin & alcohol) last use 2 days prior to admission, transferred from [facility] for leukopenia, thrombocytopenia. Admitted for sepsis due to UTI. 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
[2019-08-09] MEDS ORDERED: LORazepam 0.5 MG TABLET PO PRN
[2019-08-09] MEDS ORDERED: DEXTROSE 5%-WATER 100 ML IVPB ONE ×3 (01:10→17:04)
[2019-08-09] MEDS ORDERED: PIPERACILLIN/TAZOBACTAM 4.5 GM VIAL IVPB ONE ×3 (01:10→17:04)
[2019-08-09] MEDS: PIPERACILLIN/TAZOB 4.5 GM 4.5 GM in DEXTROSE 5%-WATER 100 ML IVPB SCH ×3 (01:14→17:47)
[2019-08-09] MEDS: ACETAMINOPHEN 325 MG TABLET (FP) PO ONE ×2 (04:22→04:25)
[2019-08-09] MEDS ORDERED: ACETAMINOPHEN 325 MG TABLET (FP) PO ONE (04:30)
[2019-08-09] MEDS: METHADONE HCL 10 MG TABLET PO SCH (05:28)
[2019-08-09] MEDS: LORazepam 0.5 MG TABLET PO SCH ×4 (06:38→23:19)
[2019-08-09] MEDS: ALBUTEROL SO4 2.5/IPRATROPIUM 0.5 INH SOL 3 ML VIAL.NEB. NEB SCH ×4 (07:39→20:20)
[2019-08-09 08:17] LABS: HEMATOCRIT 37.7 % (32.4-45.2); HEMOGLOBIN 12.7 GM/dL (10.7-15.3); MCH 32.1 pg (25.7-33.7); MCHC 33.6 g/dl (32.0-36.0); MEAN CELL VOLUME 95.3 fl (80-96); MEAN PLT VOLUME 9.3 fl (7.5-11.1); PLATELET COUNT 41 K/MM3 (134-434); RBC 3.96 M/mm3 (3.60-5.2); RDW 13.8 % (11.6-15.6)
[2019-08-09 08:22] LABS: WHITE BLOOD COUNT 1.9 K/mm3 (4.0-10.0)
[2019-08-09 08:29] LABS: BLOOD UREA NITROGEN 13.5 mg/dL (7-18); CALCIUM 8.3 mg/dL (8.5-10.1); CREATININE 0.7 mg/dL (0.55-1.3); MAGNESIUM 2.1 mg/dL (1.8-2.4); PHOSPHOROUS 5.5 mg/dL (2.5-4.9); POTASSIUM 4.4 mmol/L (3.5-5.1)
[2019-08-09] MEDS: MULTIVITAMINS (DAILY MVI) TABLET (FP) PO SCH (10:32)
[2019-08-09] MEDS: THIAMINE HCL 200 MG/2 ML VIAL IVPB SCH (10:32)
[2019-08-09] MEDS: diphenhydrAMINE HCL 25 MG CAPSULE (FP) PO PRN ×2 (17:47→23:11)
--- NOTE | 2019-08-09 19:20 | PN ---
Progress Note (short form) - Note Progress Note: Patient is feeling better with no acute distress, on isolation now Vital Signs Temperature 98.2 F 08/09/19 17:13 Pulse Rate 94 H 08/09/19 17:13 Respiratory Rate 18 08/09/19 17:13 Blood Pressure 92/68 08/09/19 17:13 O2 Sat by Pulse Oximetry (%) 99 08/08/19 10:00 GENERAL: The patient is awake, alert, and fully oriented, in no acute distress. HEAD: Normal with no signs of trauma. EYES: PERRL, extraocular movements intact, sclera anicteric, conjunctiva clear. ENT: Ears normal, oropharynx clear without exudates, moist mucous membranes. NECK: Trachea midline, full range of motion, supple. LUNGS: Breath sounds equal, clear to auscultation bilaterally, no wheezes, no crackles, no accessory muscle use. HEART: Regular rate and rhythm, S1, S2 without murmur, rub or gallop. ABDOMEN: Soft, NT,ND, normoactive bowel sounds, no guarding, no rebound, no hepatosplenomegaly, no masses. EXTREMITIES: 2+ pulses, warm, well-perfused, no edema. NEUROLOGICAL: Cranial nerves II through XII grossly intact. Normal speech, gait not observed. PSYCH: Normal mood, normal affect. SKIN: Warm, dry, normal turgor, no rashes or lesions noted CBCD WBC 1.9 K/mm3 (4.0-10.0) L* 08/09/19 07:12 RBC 3.96 M/mm3 (3.60-5.2) 08/09/19 07:12 Hgb 12.7 GM/dL (10.7-15.3) 08/09/19 07:12 Hct 37.7 % (32.4-45.2) 08/09/19 07:12 MCV 95.3 fl (80-96) 08/09/19 07:12 MCHC 33.6 g/dl (32.0-36.0) 08/09/19 07:12 RDW 13.8 % (11.6-15.6) 08/09/19 07:12 Plt Count 41 K/MM3 (134-434) L 08/09/19 07:12 MPV 9.3 fl (7.5-11.1) 08/09/19 07:12 CMP Sodium 137 mmol/L (136-145) 08/09/19 07:12 Potassium 4.4 mmol/L (3.5-5.1) 08/09/19 07:12 Chloride 103 mmol/L (98-107) 08/09/19 07:12 Carbon Dioxide 28 mmol/L (21-32) 08/09/19 07:12 Anion Gap 6 MMOL/L (8-16) L 08/09/19 07:12 BUN 13.5 mg/dL (7-18) 08/09/19 07:12 Creatinine 0.7 mg/dL (0.55-1.3) 08/09/19 07:12 Random Glucose 80 mg/dL (74-106) 08/09/19 07:12 Calcium 8.3 mg/dL (8.5-10.1) L 08/09/19 07:12 Total Bilirubin 0.6 mg/dL (0.2-1) 08/07/19 07:00 AST 23 U/L (15-37) 08/07/19 07:00 ALT 21 U/L (13-61) 08/07/19 07:00 Alkaline Phosphatase 112 U/L (45-117) 08/07/19 07:00 Total Protein 5.5 g/dl (6.4-8.2) L 08/07/19 07:00 Albumin 2.5 g/dl (3.4-5.0) L 08/07/19 07:00 Current Medications Generic Name Dose Route Start Last Admin Trade Name Freq PRN Reason Stop Dose Admin Albuterol/Ipratropium 1 amp 08/07/19 08:00 08/09/19 16:20 Duoneb - NEB 1 amp RQID EMELINA Administration Diphenhydramine HCl 25 mg 08/09/19 15:51 Benadryl - PO Q8H PRN FOR ITCHING Piperacillin Sod/Tazobactam 100 mls @ 200 mls/hr 08/07/19 18:00 08/09/19 17: 47 Sod 4.5 gm/ Dextrose IVPB 200 mls/hr Q8H-IV EMELINA Administration Protocol Lorazepam 0.5 mg 08/09/19 05:00 08/09/19 17:48 Ativan - PO 08/09/19 23:01 0.5 mg Q6H EMELINA Administration Lorazepam 0.5 mg 08/09/19 00:00 08/09/19 01:15 Ativan - PO 08/09/19 23:59 0.5 mg Q4H PRN Administration Symptoms of Withdrawal Lorazepam 0.5 mg 08/10/19 05:00 Ativan - PO 08/10/19 05:01 ONCE ONE Methadone HCl 30 mg 08/08/19 06:00 08/09/19 05:28 Dolophine - PO 30 mg DAILY@0600 EMELINA Administration Multivitamins/Minerals/Vitamin C 1 tab 08/08/19 10:00 08/09/19 10:32 Tab-A-Vit - PO 1 tab DAILY EMELINA Administration Thiamine HCl 200 mg 08/07/19 10:00 08/09/19 10:32 Vitamin B1 Injection - IVPB 200 mg DAILY EMELINA Administration Home Medications Medication Instructions Recorded Baclofen 20 mg PO TID 08/05/19 Diphenhydramine [Benadryl -] 50 mg PO TID PRN 08/05/19 Folic Acid 1 mg PO DAILY 08/05/19 Gabapentin 600 mg PO TID 08/05/19 Multivitamin [One-Daily 1 each PO DAILY 08/05/19 Multi-Vitamin] Zolpidem Tartrate [Ambien] 5 mg PO HS 08/05/19 Microbiology 08/06/19 17:30 Blood - Peripheral Venous Blood Culture - Preliminary NO GROWTH OBTAINED AFTER 72 HOURS, INCUBATION TO CONTINUE FOR 2 DAYS. 08/06/19 17:10 Blood - Peripheral Venous Blood Culture - Preliminary NO GROWTH OBTAINED AFTER 72 HOURS, INCUBATION TO CONTINUE FOR 2 DAYS. 08/06/19 19:00 Urine - Urine Clean Catch Urine Culture - Final Escherichia Coli Esbl Commercial Artist ASSESSMENT AND PLAN: Patient is a 59yof with PMHx of COPD, HCV(s/p Harvoni), cirrhosis, substance abuse(heroin & alcohol) last use 2 days prior to admission, transferred from [facility] for leukopenia, thrombocytopenia. Admitted for sepsis due to UTI. 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 - New Patient This patient is new to me today: No - Critical Care Critical Care patient: No - Discharge Referral Referred to [facility] No
--- NOTE | 2019-08-09 22:37 | PN ---
Teaching Attending Note Name of Resident: Toi Jaramillo ATTENDING PHYSICIAN STATEMENT I saw and evaluated the patient. I reviewed the resident's note and discussed the case with the resident. I agree with the resident's findings and plan as documented. ASSESSMENT AND PLAN: 59 yo F PMH COPD, HCV (s/p tx) , cirrhosis, substance abuse ( heroin , alcohol- last use 2 days ago) presents from [facility] for leukopenia, thrombocytopenia. pt states that she has been having lower abdominal pain since last night. pt states that shes also been having dysuria for 4 days. we are consulted for thrombocytopenia and neutropenia splenomegaly noted on renal u/s suspect cytopenias are due to cirrhosis but suspect worsening is due to urinary tract infection transfuse platelets if bleeding/prior to procedures
[2019-08-10] MEDS ORDERED: diphenhydrAMINE HCL 25 MG CAPSULE (FP) PO ONE (01:09)
[2019-08-10] MEDS ORDERED: PIPERACILLIN/TAZOBACTAM 4.5 GM VIAL IVPB ONE ×2 (01:11→08:36)
[2019-08-10] MEDS ORDERED: DEXTROSE 5%-WATER 100 ML IVPB ONE ×2 (01:11→08:36)
[2019-08-10] MEDS: PIPERACILLIN/TAZOB 4.5 GM 4.5 GM in DEXTROSE 5%-WATER 100 ML IVPB SCH ×2 (01:17→10:31)
[2019-08-10] MEDS ORDERED: LORazepam 0.5 MG TABLET PO ONE (05:00)
[2019-08-10] MEDS: METHADONE HCL 10 MG TABLET PO SCH (05:44)
[2019-08-10] MEDS: ALBUTEROL SO4 2.5/IPRATROPIUM 0.5 INH SOL 3 ML VIAL.NEB. NEB SCH ×4 (07:44→20:38)
[2019-08-10 09:16] LABS: BASO % 0.7 % (0-2.0); EOS % 2.8 % (0-4.5); HEMATOCRIT 40.1 % (32.4-45.2); HEMOGLOBIN 13.4 GM/dL (10.7-15.3); LYMPH % 33.1 % (8-40); MCH 31.7 pg (25.7-33.7); MCHC 33.5 g/dl (32.0-36.0); MEAN CELL VOLUME 94.7 fl (80-96); MEAN PLT VOLUME 9.1 fl (7.5-11.1); MONO % 12.8 % (3.8-10.2); NEUT % 50.6 % (42.8-82.8); PLATELET COUNT 44 K/MM3 (134-434); RBC 4.24 M/mm3 (3.60-5.2); RDW 13.8 % (11.6-15.6); WHITE BLOOD COUNT 2.3 K/mm3 (4.0-10.0)
[2019-08-10 09:43] LABS: ALBUMIN 3.1 g/dl (3.4-5.0); BILIRUBIN,TOTAL 0.6 mg/dL (0.2-1); CALCIUM 8.9 mg/dL (8.5-10.1); CREATININE 0.8 mg/dL (0.55-1.3); POTASSIUM 4.3 mmol/L (3.5-5.1); TOT PROT 6.8 g/dl (6.4-8.2)
[2019-08-10] MEDS: MULTIVITAMINS (DAILY MVI) TABLET (FP) PO SCH (10:31)
[2019-08-10] MEDS: THIAMINE HCL 200 MG/2 ML VIAL IVPB SCH (10:31)
[2019-08-10] MEDS: diphenhydrAMINE HCL 25 MG CAPSULE (FP) PO PRN ×2 (11:54→21:15)
[2019-08-10] MEDS: FOLIC ACID 1 MG TABLET (FP) PO SCH (12:02)
[2019-08-10] MEDS: THIAMINE HCL 100 MG TABLET (FP) PO SCH (12:02)
[2019-08-10] MEDS ORDERED: PT OWN MED DRAWER 7, Y5N ONE (13:06)
--- NOTE | 2019-08-10 14:24 | PN ---
Physical Exam: SUBJECTIVE: Patient seen and examined O/N: received benadryl x1 for complaint of diffuse itching OBJECTIVE: Vital Signs Period Temp Pulse Resp BP Sys/Rankin Pulse Ox Last 24 Hr 98.2 F-98.7 F 80-99 18-18 92-107/66-68 99 GENERAL: The patient is lethargic, and fully oriented. HEAD: NC/AT, no temporal wasting EYES: extraocular movements intact, sclera anicteric, conjunctiva clear. No ptosis. ENT: Ears normal, nares patent, moist mucous membranes. NECK: Trachea midline, full range of motion, supple. Neg cervical LAD LUNGS: Breath sounds equal, mild b/l wheezes; no crackles, no accessory muscle use. No rash on chest HEART: Regular rate and rhythm, S1, S2 without murmur, rub or gallop. ABDOMEN: Soft, nontender, nondistended, normoactive bowel sounds, no guarding, no rebound. No rash on abd EXTREMITIES: 2+ pulses, warm, well-perfused, no edema. 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 RLE shorter and slightly smaller than LLE NEUROLOGICAL: lethargic, oriented, gait not observed. PSYCH: lethargic. No tremors. No agitation SKIN: Warm, dry, normal turgor, no rashes or lesions noted Laboratory Results - last 24 hr 08/10/19 08/10/19 08:30 08:30 WBC 2.3 L RBC 4.24 Hgb 13.4 Hct 40.1 MCV 94.7 MCH 31.7 MCHC 33.5 RDW 13.8 Plt Count 44 L MPV 9.1 Absolute Neuts (auto) 1.2 L Neutrophils % 50.6 D Lymphocytes % 33.1 Monocytes % 12.8 H Eosinophils % 2.8 Basophils % 0.7 Nucleated RBC % 0 Sodium 144 Potassium 4.3 Chloride 111 H Carbon Dioxide 29 Anion Gap 4 L BUN 14.0 Creatinine 0.8 Est GFR (CKD-EPI)AfAm 92.87 Est GFR (CKD-EPI)NonAf 80.13 Random Glucose 85 Calcium 8.9 Total Bilirubin 0.6 AST 27 ALT 23 Alkaline Phosphatase 119 H Total Protein 6.8 Albumin 3.1 L Active Medications Generic Name Dose Route Start Last Admin Trade Name Freq PRN Reason Stop Dose Admin Albuterol/Ipratropium 1 amp 08/07/19 08:00 08/10/19 11:38 Duoneb - NEB 1 amp RQID EMELINA Administration Diphenhydramine HCl 50 mg 08/10/19 11:30 08/10/19 11:54 Benadryl - PO 50 mg TID PRN Administration ALLERGIES Folic Acid 1 mg 08/10/19 11:45 08/10/19 12:02 Folic Acid - PO 1 mg DAILY EMELINA Administration Gabapentin 600 mg 08/10/19 14:00 Neurontin - PO TID EMELINA Ertapenem 1 gm/ Sodium 50 mls @ 100 mls/hr 08/10/19 12:15 Chloride IVPB DAILY EMELINA Lorazepam 0.5 mg 08/10/19 11:34 Ativan - PO 08/14/19 00:00 Q8H PRN Symptoms of Withdrawal Methadone HCl 30 mg 08/08/19 06:00 08/10/19 05:44 Dolophine - PO 30 mg DAILY@0600 EMELINA Administration Multivitamins/Minerals/Vitamin C 1 tab 08/08/19 10:00 08/10/19 10:31 Tab-A-Vit - PO 1 tab DAILY EMELINA Administration Thiamine HCl 100 mg 08/10/19 11:45 08/10/19 12:02 Vitamin B1 - PO 100 mg DAILY EMELINA Administration ASSESSMENT/PLAN: 59 yo F PMH COPD, HCV(s/p Harvoni), cirrhosis, substance abuse(heroin & alcohol - last use 2 days prior to admission) transferred from [facility] for leukopenia , thrombocytopenia. Pt had presenting complaint of fever, chills, malaise, burning pain with urination. Pt admitted for sepsis 2/2 UTI. US renal/bladder(08/08/19) unremarkable. CT head negative. 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 Hematology([facility]) consult thought neutropena-thrombocytopenia 2/2 to cirrhosis. HIV negative. Neutropenia resolved spontaneously. Resumed ?home benadryl for chronic itch. Ertapanem d/t ESBL UTI. # Sepsis 2/2 UTI > UA: protein 1+, blood 1+, nitrite +, LE 2+, WBC 84, bact 4250 > UCX(08/06/19) --ESBL(R to Gentamicin, Levofloxacin, Tobramycin, Bactrim) > BCX(08/06/19) --NGTD > renal and bladder U/S(08/08/19) --unremarkable > CXR: spine and Right shoulder w/ degenerative changes, deformed distal clavicles(chronic) - [employer]/ED: 101.8F, vanc + zosyn, ofirmev x1, duoneb x5, NS @2L - ID(Vitaliy) recs appreciated: > HIV: negative -- abx regimen: vancomycin stopped; zosyn stoppe; ertapenem day #5 #Leukopenia, thrombocytopenia - likely 2/2 alcohol abuse and cirrhosis > HIV: negative - neutropenia precautions - Obtain records from [facility] --pending - Heme([facility]ris) consult: --suspected d/t cirrhosis --transfuse platelets PRN # Acute toxic metabolic encephalopathy > CTH(08/06/19): neg for intracranial path. Microvascular disease noted. - r/o acute intracranial pathology COPD -c/w duonebs # substance abuse/ Alcohol withdrawal - initial CIWA 19 - initial COWS 10, h/o outpt Methadone at [facility] - Addiction Medicine(Sanjeev) consulted: --ativan protocol --Methadone 30mg QD, then discharge to vs outpt Methadone([facility]) - IV fluids, folate, thiamine - seizure precautions # decreased ROM of R shoulder > XR Right shoulder(08/06/19): OA of humeral head and glenoid fossa F/E/N - c/w Folate, thiamine - monitor lytes - neutropenic diet DVT ppx: lovenox Dispo: Med-Surg, neutropenic precautions Visit type - Emergency Visit Emergency Visit: No - New Patient This patient is new to me today: No - Critical Care Critical Care patient: No ATTENDING PHYSICIAN STATEMENT I saw and evaluated the patient. I reviewed the resident's note and discussed the case with the resident. I agree with the resident's findings and plan as documented. SUBJECTIVE: OBJECTIVE: ASSESSMENT AND PLAN:
[2019-08-10] MEDS: GABAPENTIN 300 MG CAPSULE (FP) PO SCH ×3 (15:00→21:16)
[2019-08-10] MEDS: ERTAPENEM SODIUM 1 GM in SODIUM CHLORIDE 50 ML IVPB SCH (15:06)
[2019-08-10] MEDS: LORazepam 0.5 MG TABLET PO PRN (17:24)
--- NOTE | 2019-08-10 19:14 | PN ---
Teaching Attending Note Name of Resident: Ovi Mehta ATTENDING PHYSICIAN STATEMENT I saw and evaluated the patient. I reviewed the resident's note and discussed the case with the resident. I agree with the resident's findings and plan as documented. SUBJECTIVE: Patient is feeling better but c/o having generlaized pain. Vital Signs Temperature 98.0 F 08/10/19 15:00 Pulse Rate 92 H 08/10/19 15:00 Respiratory Rate 18 08/10/19 15:00 Blood Pressure 110/72 08/10/19 15:00 O2 Sat by Pulse Oximetry (%) 99 08/09/19 21:00 GENERAL: The patient is awake, alert, and fully oriented, in no acute distress. HEAD: Normal with no signs of trauma. EYES: PERRL, extraocular movements intact, sclera anicteric, conjunctiva clear. ENT: Ears normal, oropharynx clear without exudates, moist mucous membranes. NECK: Trachea midline, full range of motion, supple. LUNGS: Breath sounds equal, clear to auscultation bilaterally, no wheezes, no crackles, no accessory muscle use. HEART: Regular rate and rhythm, S1, S2 without murmur, rub or gallop. ABDOMEN: Soft, NT,ND, normoactive bowel sounds, no guarding, no rebound, no hepatosplenomegaly, no masses. EXTREMITIES: 2+ pulses, warm, well-perfused, no edema. NEUROLOGICAL: Cranial nerves II through XII grossly intact. Normal speech, gait not observed. PSYCH: Normal mood, normal affect. SKIN: Warm, dry, normal turgor, no rashes or lesions noted CBCD WBC 2.3 K/mm3 (4.0-10.0) L 08/10/19 08:30 RBC 4.24 M/mm3 (3.60-5.2) 08/10/19 08:30 Hgb 13.4 GM/dL (10.7-15.3) 08/10/19 08:30 Hct 40.1 % (32.4-45.2) 08/10/19 08:30 MCV 94.7 fl (80-96) 08/10/19 08:30 MCHC 33.5 g/dl (32.0-36.0) 08/10/19 08:30 RDW 13.8 % (11.6-15.6) 08/10/19 08:30 Plt Count 44 K/MM3 (134-434) L 08/10/19 08:30 MPV 9.1 fl (7.5-11.1) 08/10/19 08:30 CMP Sodium 144 mmol/L (136-145) 08/10/19 08:30 Potassium 4.3 mmol/L (3.5-5.1) 08/10/19 08:30 Chloride 111 mmol/L (98-107) H 08/10/19 08:30 Carbon Dioxide 29 mmol/L (21-32) 08/10/19 08:30 Anion Gap 4 MMOL/L (8-16) L 08/10/19 08:30 BUN 14.0 mg/dL (7-18) 08/10/19 08:30 Creatinine 0.8 mg/dL (0.55-1.3) 08/10/19 08:30 Random Glucose 85 mg/dL (74-106) 08/10/19 08:30 Calcium 8.9 mg/dL (8.5-10.1) 08/10/19 08:30 Total Bilirubin 0.6 mg/dL (0.2-1) 08/10/19 08:30 AST 27 U/L (15-37) 08/10/19 08:30 ALT 23 U/L (13-61) 08/10/19 08:30 Alkaline Phosphatase 119 U/L (45-117) H 08/10/19 08:30 Total Protein 6.8 g/dl (6.4-8.2) 08/10/19 08:30 Albumin 3.1 g/dl (3.4-5.0) L 08/10/19 08:30 Current Medications Generic Name Dose Route Start Last Admin Trade Name Freq PRN Reason Stop Dose Admin Albuterol/Ipratropium 1 amp 08/07/19 08:00 08/10/19 15:50 Duoneb - NEB 1 amp RQID EMELINA Administration Diphenhydramine HCl 50 mg 08/10/19 11:30 08/10/19 11:54 Benadryl - PO 50 mg TID PRN Administration ALLERGIES Folic Acid 1 mg 08/10/19 11:45 08/10/19 12:02 Folic Acid - PO 1 mg DAILY EMELINA Administration Gabapentin 600 mg 08/10/19 14:00 08/10/19 15:00 Neurontin - PO Not Given TID [facility] Ertapenem 1 gm/ Sodium 50 mls @ 100 mls/hr 08/10/19 12:15 08/10/19 15:06 Chloride IVPB 100 mls/hr DAILY EMELINA Administration Lorazepam 0.5 mg 08/10/19 11:34 08/10/19 17:24 Ativan - PO 08/14/19 00:00 0.5 mg Q8H PRN Administration Symptoms of Withdrawal Methadone HCl 30 mg 08/08/19 06:00 08/10/19 05:44 Dolophine - PO 30 mg DAILY@0600 EMELINA Administration Multivitamins/Minerals/Vitamin C 1 tab 08/08/19 10:00 08/10/19 10:31 Tab-A-Vit - PO 1 tab DAILY EMELINA Administration Thiamine HCl 100 mg 08/10/19 11:45 08/10/19 12:02 Vitamin B1 - PO 100 mg DAILY EMELINA Administration Home Medications Medication Instructions Recorded Baclofen 20 mg PO TID 08/05/19 Diphenhydramine [Benadryl -] 50 mg PO TID PRN 08/05/19 Folic Acid 1 mg PO DAILY 08/05/19 Gabapentin 600 mg PO TID 08/05/19 Multivitamin [One-Daily 1 each PO DAILY 08/05/19 Multi-Vitamin] Zolpidem Tartrate [Ambien] 5 mg PO HS 08/05/19 Microbiology 08/06/19 17:30 Blood - Peripheral Venous Blood Culture - Preliminary NO GROWTH OBTAINED AFTER 72 HOURS, INCUBATION TO CONTINUE FOR 2 DAYS. 08/06/19 17:10 Blood - Peripheral Venous Blood Culture - Preliminary NO GROWTH OBTAINED AFTER 72 HOURS, INCUBATION TO CONTINUE FOR 2 DAYS. 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 Admitted for sepsis due to UTI. # Acute Neutropenic fever on zosyn, Ua positive for ESBL on isolation # sepsis with acute UTI continue IV antibiotic # Acute UTI continue zosyn #Leukopenia, thrombocytopenia due to etoh use # Etoh dependency on Ativanprotocol , on methadone # Hx of heroine use: on methadone, detox on consult # Hx of hep c cirrhosis- not treated, will check hep serology b/c # Acute toxic metabolic encephalopathy due to etoh dependency , improving # Hx of COPD on duonebs # decreased ROM of R shoulder: XR Right shoulder(08/06/19): OA of humeral head and glenoid fossa HIV test DVT ppx: lovenox
[2019-08-11] MEDS: LORazepam 0.5 MG TABLET PO PRN ×3 (01:29→22:18)
[2019-08-11] MEDS: GABAPENTIN 300 MG CAPSULE (FP) PO SCH ×3 (06:13→22:16)
[2019-08-11] MEDS: METHADONE HCL 10 MG TABLET PO SCH (06:14)
[2019-08-11 08:05] LABS: EOS % 3.5 % (0-4.5); HEMATOCRIT 39.2 % (32.4-45.2); HEMOGLOBIN 13.1 GM/dL (10.7-15.3); LYMPH % 38.5 % (8-40); MCH 31.5 pg (25.7-33.7); MCHC 33.5 g/dl (32.0-36.0); MEAN CELL VOLUME 94.1 fl (80-96); MEAN PLT VOLUME 9.8 fl (7.5-11.1); PLATELET COUNT 53 K/MM3 (134-434); RBC 4.16 M/mm3 (3.60-5.2); RDW 13.7 % (11.6-15.6); WHITE BLOOD COUNT 2.7 K/mm3 (4.0-10.0)
[2019-08-11] MEDS: ALBUTEROL SO4 2.5/IPRATROPIUM 0.5 INH SOL 3 ML VIAL.NEB. NEB SCH ×4 (08:09→20:15)
[2019-08-11 08:42] LABS: BLOOD UREA NITROGEN 19.8 mg/dL (7-18); CALCIUM 9.2 mg/dL (8.5-10.1); CREATININE 0.7 mg/dL (0.55-1.3); MAGNESIUM 2.4 mg/dL (1.8-2.4); PHOSPHOROUS 4.1 mg/dL (2.5-4.9); POTASSIUM 4.2 mmol/L (3.5-5.1)
[2019-08-11] MEDS ORDERED: PT OWN MED DRAWER 7, Y5N ONE (10:55)
[2019-08-11] MEDS: MULTIVITAMINS (DAILY MVI) TABLET (FP) PO SCH (10:57)
[2019-08-11] MEDS: FOLIC ACID 1 MG TABLET (FP) PO SCH (10:57)
[2019-08-11] MEDS: diphenhydrAMINE HCL 25 MG CAPSULE (FP) PO PRN ×2 (10:57→22:17)
[2019-08-11] MEDS: THIAMINE HCL 100 MG TABLET (FP) PO SCH (10:57)
[2019-08-11] MEDS: ERTAPENEM SODIUM 1 GM in SODIUM CHLORIDE 50 ML IVPB SCH (10:58)
--- NOTE | 2019-08-11 13:39 | PN ---
Progress Note (short form) - Note Progress Note: doing well day #5 antibiotics no more dysuria Vital Signs Period Temp Pulse Resp BP Sys/Rankin Pulse Ox Last 24 Hr 97.5 F-98.5 F 85-104 18-20 90-118/60-77 97 cor-rrr lungs decreased bs at bases abd soft,nt ext no edema CBC, BMP 08/11/19 06:30 08/11/19 06:30 Microbiology 08/06/19 17:30 Blood - Peripheral Venous Blood Culture - Preliminary NO GROWTH OBTAINED AFTER 96 HOURS, INCUBATION TO CONTINUE FOR 1 DAYS. 08/06/19 17:10 Blood - Peripheral Venous Blood Culture - Preliminary NO GROWTH OBTAINED AFTER 96 HOURS, INCUBATION TO CONTINUE FOR 1 DAYS. 08/06/19 19:00 Urine - Urine Clean Catch Urine Culture - Final Escherichia Coli Esbl Senior Ui Designer imp/reccd Neutropenic fever UTI-coli esbl- day #5 of 7- etoh use ex-heroine user- on methadone hep c cirrhosis- treated leukopenia/thrombocytopenia- heme f/u hiv negative please call back if needed Problem List - Problems (1) Neutropenic fever Code(s): D70.9 - NEUTROPENIA, UNSPECIFIED; R50.81 - FEVER PRESENTING WITH CONDITIONS CLASSIFIED ELSEWHERE (2) UTI (urinary tract infection) Code(s): N39.0 - URINARY TRACT INFECTION, SITE NOT SPECIFIED Qualifiers: Urinary tract infection type: site unspecified Hematuria presence: without hematuria Qualified Code(s): N39.0 - Urinary tract infection, site not specified (3) Alcohol dependence Code(s): F10.20 - ALCOHOL DEPENDENCE, UNCOMPLICATED (4) Opioid dependence Code(s): F11.20 - OPIOID DEPENDENCE, UNCOMPLICATED (5) Hepatitis C Code(s): B19.20 - UNSPECIFIED VIRAL HEPATITIS C WITHOUT HEPATIC COMA
--- NOTE | 2019-08-11 17:03 | PN ---
Physical Exam: SUBJECTIVE: Patient seen and examined MARKON Endorses no burning in urination, no lower abdominal pain. Tolerating diet w/o issues OBJECTIVE: Vital Signs Period Temp Pulse Resp BP Sys/Rankin Pulse Ox Last 24 Hr 97.5 F-98.6 F 85-104 20-22 90-118/60-77 97 GENERAL: The patient is lethargic, and fully oriented. HEAD: NC/AT, no temporal wasting EYES: extraocular movements intact, sclera anicteric, conjunctiva clear. No ptosis. ENT: Ears normal, nares patent, moist mucous membranes. NECK: Trachea midline, full range of motion, supple. Neg cervical LAD LUNGS: Breath sounds equal, mild b/l wheezes; no crackles, no accessory muscle use. No rash on chest HEART: Regular rate and rhythm, S1, S2 without murmur, rub or gallop. ABDOMEN: Soft, nontender, nondistended, normoactive bowel sounds, no guarding, no rebound. No rash on abd EXTREMITIES: 2+ pulses, warm, well-perfused, no edema. 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 RLE shorter and slightly smaller than LLE, RLE with prominent veins NEUROLOGICAL: lethargic, oriented, gait not observed. PSYCH: lethargic. No tremors. No agitation SKIN: Warm, dry, normal turgor, no rashes or lesions noted Laboratory Results - last 24 hr 08/11/19 08/11/19 06:30 06:30 WBC 2.7 L RBC 4.16 Hgb 13.1 Hct 39.2 MCV 94.1 MCH 31.5 MCHC 33.5 RDW 13.7 Plt Count 53 L D MPV 9.8 Absolute Neuts (auto) 1.2 L Neutrophils % 45.0 Lymphocytes % 38.5 Monocytes % 12.0 H Eosinophils % 3.5 Basophils % 1.0 Nucleated RBC % 0 Sodium 137 Potassium 4.2 Chloride 102 Carbon Dioxide 28 Anion Gap 7 L BUN 19.8 H Creatinine 0.7 Est GFR (CKD-EPI)AfAm 109.15 Est GFR (CKD-EPI)NonAf 94.17 Random Glucose 78 Calcium 9.2 Phosphorus 4.1 Magnesium 2.4 Active Medications Generic Name Dose Route Start Last Admin Trade Name Freq PRN Reason Stop Dose Admin Albuterol/Ipratropium 1 amp 08/07/19 08:00 08/11/19 12:12 Duoneb - NEB 1 amp RQID EMELINA Administration Diphenhydramine HCl 50 mg 08/10/19 11:30 08/11/19 10:57 Benadryl - PO 50 mg TID PRN Administration ALLERGIES Folic Acid 1 mg 08/10/19 11:45 08/11/19 10:57 Folic Acid - PO 1 mg DAILY EMELINA Administration Gabapentin 600 mg 08/10/19 14:00 08/11/19 13:43 Neurontin - PO 600 mg TID EMELINA Administration Ertapenem 1 gm/ Sodium 50 mls @ 100 mls/hr 08/10/19 12:15 08/11/19 10:58 Chloride IVPB 100 mls/hr DAILY EMELINA Administration Lorazepam 0.5 mg 08/10/19 11:34 08/11/19 13:44 Ativan - PO 08/14/19 00:00 0.5 mg Q8H PRN Administration Symptoms of Withdrawal Methadone HCl 30 mg 08/08/19 06:00 08/11/19 06:14 Dolophine - PO 30 mg DAILY@0600 EMELINA Administration Multivitamins/Minerals/Vitamin C 1 tab 08/08/19 10:00 08/11/19 10:57 Tab-A-Vit - PO 1 tab DAILY EMELINA Administration Thiamine HCl 100 mg 08/10/19 11:45 08/11/19 10:57 Vitamin B1 - PO 100 mg DAILY EMELINA Administration ASSESSMENT/PLAN: 59 yo F PMH COPD, HCV(s/p Harvoni), cirrhosis, substance abuse(heroin & alcohol - last use 2 days prior to admission) transferred from [facility] for leukopenia , thrombocytopenia. Pt had presenting complaint of fever, chills, malaise, burning pain with urination. Pt admitted for sepsis 2/2 UTI. US renal/bladder(08/08/19) unremarkable. CT head negative. 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 Hematology([facility]) consult thought neutropena-thrombocytopenia 2/2 to cirrhosis. HIV negative. Neutropenia resolved spontaneously. Resumed ?home benadryl for chronic itch. Ertapanem d/t ESBL UTI. # Sepsis 2/2 UTI > UA: protein 1+, blood 1+, nitrite +, LE 2+, WBC 84, bact 4250 > UCX(08/06/19) --ESBL(R to Gentamicin, Levofloxacin, Tobramycin, Bactrim) > BCX(08/06/19) --NGTD > renal and bladder U/S(08/08/19) --unremarkable > CXR: spine and Right shoulder w/ degenerative changes, deformed distal clavicles(chronic) - [facility]/ED: 101.8F, vanc + zosyn, ofirmev x1, duoneb x5, NS @2L - ID(Vitaliy) recs appreciated: > HIV: negative -- abx regimen: vancomycin stopped; zosyn stopped; ertapenem day #6 -- possibly macrobid PO until completion of 7d #Leukopenia, thrombocytopenia - likely 2/2 alcohol abuse and cirrhosis > HIV: negative - neutropenia precautions - Obtain records from [facility] --pending - Heme(Cris) consult: --suspected d/t cirrhosis --transfuse platelets PRN # Acute toxic metabolic encephalopathy > CTH(08/06/19): neg for intracranial path. Microvascular disease noted. - r/o acute intracranial pathology COPD -c/w duonebs # substance abuse/ Alcohol withdrawal - initial CIWA 19 - initial COWS 10, h/o outpt Methadone at [facility] - Addiction Medicine(Sanjeev) consulted: --ativan protocol --Methadone 30mg QD, then discharge to vs outpt Methadone([facility]) - IV fluids, folate, thiamine - seizure precautions # decreased ROM of R shoulder > XR Right shoulder(08/06/19): OA of humeral head and glenoid fossa F/E/N - c/w Folate, thiamine - monitor lytes - neutropenic diet DVT ppx: lovenox Dispo: Med-Surg, neutropenic precautions Visit type - Emergency Visit Emergency Visit: No - New Patient This patient is new to me today: No - Critical Care Critical Care patient: No ATTENDING PHYSICIAN STATEMENT I saw and evaluated the patient. I reviewed the resident's note and discussed the case with the resident. I agree with the resident's findings and plan as documented. SUBJECTIVE: OBJECTIVE: ASSESSMENT AND PLAN:
--- NOTE | 2019-08-11 21:04 | PN ---
Teaching Attending Note Name of Resident: Ovi Mehta ATTENDING PHYSICIAN STATEMENT I saw and evaluated the patient. I reviewed the resident's note and discussed the case with the resident. I agree with the resident's findings and plan as documented. SUBJECTIVE: Patient is better but c/o having pain generalized. Vital Signs Temperature 98.4 F 08/11/19 17:41 Pulse Rate 94 H 08/11/19 17:41 Respiratory Rate 20 08/11/19 17:41 Blood Pressure 96/68 08/11/19 17:41 O2 Sat by Pulse Oximetry (%) 97 08/10/19 21:00 GENERAL: The patient is awake, alert, and fully oriented, in no acute distress. HEAD: Normal with no signs of trauma. EYES: PERRL, extraocular movements intact, sclera anicteric, conjunctiva clear. ENT: Ears normal, oropharynx clear without exudates, moist mucous membranes. NECK: Trachea midline, full range of motion, supple. LUNGS: Breath sounds equal, clear to auscultation bilaterally, no wheezes, no crackles, no accessory muscle use. HEART: Regular rate and rhythm, S1, S2 without murmur, rub or gallop. ABDOMEN: Soft, NT,ND, normoactive bowel sounds, no guarding, no rebound, no hepatosplenomegaly, no masses. EXTREMITIES: 2+ pulses, warm, well-perfused, no edema. NEUROLOGICAL: Cranial nerves II through XII grossly intact. Normal speech, gait not observed. PSYCH: Normal mood, normal affect. SKIN: Warm, dry, normal turgor, no rashes or lesions noted CBCD WBC 2.7 K/mm3 (4.0-10.0) L 08/11/19 06:30 RBC 4.16 M/mm3 (3.60-5.2) 08/11/19 06:30 Hgb 13.1 GM/dL (10.7-15.3) 08/11/19 06:30 Hct 39.2 % (32.4-45.2) 08/11/19 06:30 MCV 94.1 fl (80-96) 08/11/19 06:30 MCHC 33.5 g/dl (32.0-36.0) 08/11/19 06:30 RDW 13.7 % (11.6-15.6) 08/11/19 06:30 Plt Count 53 K/MM3 (134-434) L D 08/11/19 06:30 MPV 9.8 fl (7.5-11.1) 08/11/19 06:30 CMP Sodium 137 mmol/L (136-145) 08/11/19 06:30 Potassium 4.2 mmol/L (3.5-5.1) 08/11/19 06:30 Chloride 102 mmol/L (98-107) 08/11/19 06:30 Carbon Dioxide 28 mmol/L (21-32) 08/11/19 06:30 Anion Gap 7 MMOL/L (8-16) L 08/11/19 06:30 BUN 19.8 mg/dL (7-18) H 08/11/19 06:30 Creatinine 0.7 mg/dL (0.55-1.3) 08/11/19 06:30 Random Glucose 78 mg/dL (74-106) 08/11/19 06:30 Calcium 9.2 mg/dL (8.5-10.1) 08/11/19 06:30 Total Bilirubin 0.6 mg/dL (0.2-1) 08/10/19 08:30 AST 27 U/L (15-37) 08/10/19 08:30 ALT 23 U/L (13-61) 08/10/19 08:30 Alkaline Phosphatase 119 U/L (45-117) H 08/10/19 08:30 Total Protein 6.8 g/dl (6.4-8.2) 08/10/19 08:30 Albumin 3.1 g/dl (3.4-5.0) L 08/10/19 08:30 Current Medications Generic Name Dose Route Start Last Admin Trade Name Freq PRN Reason Stop Dose Admin Albuterol/Ipratropium 1 amp 08/07/19 08:00 08/11/19 18:44 Duoneb - NEB 1 amp RQID EMELINA Administration Diphenhydramine HCl 50 mg 08/10/19 11:30 08/11/19 10:57 Benadryl - PO 50 mg TID PRN Administration ALLERGIES Folic Acid 1 mg 08/10/19 11:45 08/11/19 10:57 Folic Acid - PO 1 mg DAILY EMELINA Administration Gabapentin 600 mg 08/10/19 14:00 08/11/19 13:43 Neurontin - PO 600 mg TID EMELINA Administration Ertapenem 1 gm/ Sodium 50 mls @ 100 mls/hr 08/10/19 12:15 08/11/19 10:58 Chloride IVPB 100 mls/hr DAILY EMELINA Administration Lorazepam 0.5 mg 08/10/19 11:34 08/11/19 13:44 Ativan - PO 08/14/19 00:00 0.5 mg Q8H PRN Administration Symptoms of Withdrawal Methadone HCl 30 mg 08/08/19 06:00 08/11/19 06:14 Dolophine - PO 30 mg DAILY@0600 EMELINA Administration Multivitamins/Minerals/Vitamin C 1 tab 08/08/19 10:00 08/11/19 10:57 Tab-A-Vit - PO 1 tab DAILY EMELINA Administration Thiamine HCl 100 mg 08/10/19 11:45 08/11/19 10:57 Vitamin B1 - PO 100 mg DAILY EMELINA Administration Home Medications Medication Instructions Recorded Baclofen 20 mg PO TID 08/05/19 Diphenhydramine [Benadryl -] 50 mg PO TID PRN 08/05/19 Folic Acid 1 mg PO DAILY 08/05/19 Gabapentin 600 mg PO TID 08/05/19 Multivitamin [One-Daily 1 each PO DAILY 08/05/19 Multi-Vitamin] Zolpidem Tartrate [Ambien] 5 mg PO HS 08/05/19 Urine Test Results Urine Color Yellow 08/06/19 19:00 Urine Appearance Cloudy 08/06/19 19:00 Urine pH 7.0 (5.0-8.0) 08/06/19 19:00 Ur Specific [place] 1.019 (1.010-1.035) 08/06/19 19:00 Urine Protein 1+ (NEGATIVE) H 08/06/19 19:00 Urine Glucose (UA) Negative (NEGATIVE) 08/06/19 19:00 Urine Ketones Negative (NEGATIVE) 08/06/19 19:00 Urine Blood 1+ (NEGATIVE) H 08/06/19 19:00 Urine Nitrite Positive (NEGATIVE) H 08/06/19 19:00 Urine Bilirubin Negative (NEGATIVE) 08/06/19 19:00 Ur Leukocyte Esterase 2+ (NEGATIVE) H 08/06/19 19:00 Microbiology 08/06/19 17:30 Blood - Peripheral Venous Blood Culture - Preliminary NO GROWTH OBTAINED AFTER 72 HOURS, INCUBATION TO CONTINUE FOR 2 DAYS. 08/06/19 17:10 Blood - Peripheral Venous Blood Culture - Preliminary NO GROWTH OBTAINED AFTER 72 HOURS, INCUBATION TO CONTINUE FOR 2 DAYS. 08/06/19 19:00 Urine - Urine Clean Catch Urine Culture - Final Escherichia Coli Esbl Bread Distributor ASSESSMENT AND PLAN: Patient is a 59yof with PMHx of COPD, HCV(s/p Harvoni), cirrhosis, substance abuse(heroin & alcohol) last use 2 days prior to admission, transferred from [facility] for leukopenia, thrombocytopenia. Admitted for sepsis due to UTI. # Acute Neutropenic fever on ertapenem now s/p zosyn, Ua positive for ESBL on isolation # sepsis with acute UTI continue IV antibiotic # Acute UTI continue ertapenem now #Leukopenia, thrombocytopenia due to etoh use # Etoh dependency onAtivanprotocol , on methadone # Hx of heroine use: on methadone, detox MD on consult # Hx of hep c cirrhosis- not treated, will check hep serology b/c # Acute toxic metabolic encephalopathy due to etoh dependency , improving # Hx of COPD on duonebs # decreased ROM of R shoulder: XR Right shoulder(08/06/19): OA of humeral head and glenoid fossa follow HIV test DVT ppx: lovenox dc planning
[2019-08-12] MEDS: METHADONE HCL 10 MG TABLET PO SCH (05:55)
[2019-08-12] MEDS: GABAPENTIN 300 MG CAPSULE (FP) PO SCH ×3 (05:55→21:59)
[2019-08-12] MEDS: LORazepam 0.5 MG TABLET PO PRN ×3 (06:50→21:59)
[2019-08-12 07:55] LABS: BASO % 0.7 % (0-2.0); EOS % 2.3 % (0-4.5); HEMATOCRIT 39.6 % (32.4-45.2); HEMOGLOBIN 13.2 GM/dL (10.7-15.3); LYMPH % 38.8 % (8-40); MCH 31.5 pg (25.7-33.7); MCHC 33.2 g/dl (32.0-36.0); MEAN CELL VOLUME 94.9 fl (80-96); MEAN PLT VOLUME 9.9 fl (7.5-11.1); MONO % 12.9 % (3.8-10.2); NEUT % 45.3 % (42.8-82.8); PLATELET COUNT 54 K/MM3 (134-434); RBC 4.17 M/mm3 (3.60-5.2); RDW 13.7 % (11.6-15.6); WHITE BLOOD COUNT 2.2 K/mm3 (4.0-10.0)
[2019-08-12 08:11] LABS: BLOOD UREA NITROGEN 17.7 mg/dL (7-18); CALCIUM 9.2 mg/dL (8.5-10.1); CREATININE 0.6 mg/dL (0.55-1.3); MAGNESIUM 2.3 mg/dL (1.8-2.4); PHOSPHOROUS 4.5 mg/dL (2.5-4.9); POTASSIUM 4.3 mmol/L (3.5-5.1)
--- NOTE | 2019-08-12 09:58 | PN ---
Teaching Attending Note Name of Resident: Ovi Mehta ATTENDING PHYSICIAN STATEMENT I saw and evaluated the patient. I reviewed the resident's note and discussed the case with the resident. I agree with the resident's findings and plan as documented. SUBJECTIVE: Patient is feeling better with no acute distress, no shortness of breath. Vital Signs Temperature 97.9 F 08/12/19 05:00 Pulse Rate 91 H 08/12/19 05:00 Respiratory Rate 18 08/12/19 05:00 Blood Pressure 99/62 08/12/19 05:00 O2 Sat by Pulse Oximetry (%) 97 08/10/19 21:00 GENERAL: The patient is awake, alert, and fully oriented, in no acute distress. HEAD: Normal with no signs of trauma. EYES: PERRL, extraocular movements intact, sclera anicteric, conjunctiva clear. ENT: Ears normal, oropharynx clear without exudates, moist mucous membranes. NECK: Trachea midline, full range of motion, supple. LUNGS: Breath sounds equal, clear to auscultation bilaterally, no wheezes, no crackles, no accessory muscle use. HEART: Regular rate and rhythm, S1, S2 without murmur, rub or gallop. ABDOMEN: Soft, NT,ND, normoactive bowel sounds, no guarding, no rebound, no hepatosplenomegaly, no masses. EXTREMITIES: 2+ pulses, warm, well-perfused, no edema. NEUROLOGICAL: Cranial nerves II through XII grossly intact. Normal speech, gait not observed. PSYCH: Normal mood, normal affect. SKIN: Warm, dry, normal turgor, no rashes or lesions noted CBCD WBC 2.2 K/mm3 (4.0-10.0) L 08/12/19 06:45 RBC 4.17 M/mm3 (3.60-5.2) 08/12/19 06:45 Hgb 13.2 GM/dL (10.7-15.3) 08/12/19 06:45 Hct 39.6 % (32.4-45.2) 08/12/19 06:45 MCV 94.9 fl (80-96) 08/12/19 06:45 MCHC 33.2 g/dl (32.0-36.0) 08/12/19 06:45 RDW 13.7 % (11.6-15.6) 08/12/19 06:45 Plt Count 54 K/MM3 (134-434) L 08/12/19 06:45 MPV 9.9 fl (7.5-11.1) 08/12/19 06:45 CMP Sodium 137 mmol/L (136-145) 08/12/19 06:45 Potassium 4.3 mmol/L (3.5-5.1) 08/12/19 06:45 Chloride 102 mmol/L (98-107) 08/12/19 06:45 Carbon Dioxide 31 mmol/L (21-32) 08/12/19 06:45 Anion Gap 4 MMOL/L (8-16) L 08/12/19 06:45 BUN 17.7 mg/dL (7-18) 08/12/19 06:45 Creatinine 0.6 mg/dL (0.55-1.3) 08/12/19 06:45 Random Glucose 80 mg/dL (74-106) 08/12/19 06:45 Calcium 9.2 mg/dL (8.5-10.1) 08/12/19 06:45 Total Bilirubin 0.6 mg/dL (0.2-1) 08/10/19 08:30 AST 27 U/L (15-37) 08/10/19 08:30 ALT 23 U/L (13-61) 08/10/19 08:30 Alkaline Phosphatase 119 U/L (45-117) H 08/10/19 08:30 Total Protein 6.8 g/dl (6.4-8.2) 08/10/19 08:30 Albumin 3.1 g/dl (3.4-5.0) L 08/10/19 08:30 Home Medications Medication Instructions Recorded Baclofen 20 mg PO TID 08/05/19 Diphenhydramine [Benadryl -] 50 mg PO TID PRN 08/05/19 Folic Acid 1 mg PO DAILY 08/05/19 Gabapentin 600 mg PO TID 08/05/19 Multivitamin [One-Daily 1 each PO DAILY 08/05/19 Multi-Vitamin] Zolpidem Tartrate [Ambien] 5 mg PO HS 08/05/19 Current Medications Generic Name Dose Route Start Last Admin Trade Name Freq PRN Reason Stop Dose Admin Diphenhydramine HCl 50 mg 08/10/19 11:30 08/11/19 22:17 Benadryl - PO 50 mg TID PRN Administration ALLERGIES Folic Acid 1 mg 08/10/19 11:45 08/11/19 10:57 Folic Acid - PO 1 mg DAILY EMELINA Administration Gabapentin 600 mg 08/10/19 14:00 08/12/19 05:55 Neurontin - PO 600 mg TID EMELINA Administration Ertapenem 1 gm/ Sodium 50 mls @ 100 mls/hr 08/10/19 12:15 08/11/19 10:58 Chloride IVPB 100 mls/hr DAILY EMELINA Administration Lorazepam 0.5 mg 08/10/19 11:34 08/12/19 06:50 Ativan - PO 08/14/19 00:00 0.5 mg Q8H PRN Administration Symptoms of Withdrawal Methadone HCl 30 mg 08/08/19 06:00 08/12/19 05:55 Dolophine - PO 30 mg DAILY@0600 EMELINA Administration Multivitamins/Minerals/Vitamin C 1 tab 08/08/19 10:00 08/11/19 10:57 Tab-A-Vit - PO 1 tab DAILY EMELINA Administration Thiamine HCl 100 mg 08/10/19 11:45 08/11/19 10:57 Vitamin B1 - PO 100 mg DAILY EMELINA Administration Microbiology 08/06/19 17:30 Blood - Peripheral Venous Blood Culture - Preliminary NO GROWTH OBTAINED AFTER 72 HOURS, INCUBATION TO CONTINUE FOR 2 DAYS. 08/06/19 17:10 Blood - Peripheral Venous Blood Culture - Preliminary NO GROWTH OBTAINED AFTER 72 HOURS, INCUBATION TO CONTINUE FOR 2 DAYS. 08/06/19 19:00 Urine - Urine Clean Catch Urine Culture - Final Escherichia Coli Esbl [employer] Inspector ASSESSMENT AND PLAN: Patient is a 59yof with PMHx of COPD, HCV(s/p Harvoni), cirrhosis, substance abuse(heroin & alcohol) last use 2 days prior to admission, transferred from [facility] for leukopenia, thrombocytopenia. Admitted for sepsis due to UTI. # Acute Neutropenic fever on ertapenem now s/p zosyn, Ua positive for ESBL on isolation , please check with ID the length of treatment with IV antibx #s/p sepsis with acute UTI continue IV antibiotic # Acute UTI continue ertapenem now #Leukopenia, thrombocytopenia due to etoh use # Etoh dependency onAtivanprotocol , on methadone # Hx of heroine use: on methadone, detox MD on consult # Hx of hep c cirrhosis- not treated, will check hep serology b/c # Acute toxic metabolic encephalopathy due to etoh dependency , improving # Hx of COPD on duonebs # decreased ROM of R shoulder: XR Right shoulder(08/06/19): 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
[2019-08-12] MEDS ORDERED: PT OWN MED DRAWER 7, Y5N ONE (10:25)
[2019-08-12] MEDS: FOLIC ACID 1 MG TABLET (FP) PO SCH (10:31)
[2019-08-12] MEDS: THIAMINE HCL 100 MG TABLET (FP) PO SCH (10:31)
[2019-08-12] MEDS: MULTIVITAMINS (DAILY MVI) TABLET (FP) PO SCH (10:31)
[2019-08-12] MEDS: diphenhydrAMINE HCL 25 MG CAPSULE (FP) PO PRN ×2 (10:31→21:59)
[2019-08-12] MEDS: ERTAPENEM SODIUM 1 GM in SODIUM CHLORIDE 50 ML IVPB SCH (10:31)
--- NOTE | 2019-08-12 18:46 | PN ---
Physical Exam: SUBJECTIVE: Patient seen and examined NAEON Denies burning pain with urination. Excited to go home OBJECTIVE: Vital Signs Period Temp Pulse Resp BP Sys/Rankin Pulse Ox Last 24 Hr 97.5 F-98.2 F 84-95 18-20 91-144/60-74 GENERAL: The patient is lethargic, and fully oriented. HEAD: NC/AT, no temporal wasting EYES: extraocular movements intact, sclera anicteric, conjunctiva clear. No ptosis. ENT: Ears normal, nares patent, moist mucous membranes. NECK: Trachea midline, full range of motion, supple. Neg cervical LAD LUNGS: Breath sounds equal, mild b/l wheezes; no crackles, no accessory muscle use. No rash on chest HEART: Regular rate and rhythm, S1, S2 without murmur, rub or gallop. ABDOMEN: Soft, nontender, nondistended, normoactive bowel sounds, no guarding, no rebound. No rash on abd EXTREMITIES: 2+ pulses, warm, well-perfused, no edema. 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 RLE shorter and slightly smaller than LLE, RLE with prominent veins NEUROLOGICAL: lethargic, oriented, gait not observed. PSYCH: lethargic. No tremors. No agitation SKIN: Warm, dry, normal turgor, no rashes or lesions noted Laboratory Results - last 24 hr 08/12/19 08/12/19 06:45 06:45 WBC 2.2 L RBC 4.17 Hgb 13.2 Hct 39.6 MCV 94.9 MCH 31.5 MCHC 33.2 RDW 13.7 Plt Count 54 L MPV 9.9 Absolute Neuts (auto) 1.0 L Neutrophils % 45.3 Lymphocytes % 38.8 Monocytes % 12.9 H Eosinophils % 2.3 Basophils % 0.7 Nucleated RBC % 0 Sodium 137 Potassium 4.3 Chloride 102 Carbon Dioxide 31 Anion Gap 4 L BUN 17.7 Creatinine 0.6 Est GFR (CKD-EPI)AfAm 114.82 Est GFR (CKD-EPI)NonAf 99.07 Random Glucose 80 Calcium 9.2 Phosphorus 4.5 Magnesium 2.3 Active Medications Generic Name Dose Route Start Last Admin Trade Name Freq PRN Reason Stop Dose Admin Diphenhydramine HCl 50 mg 08/10/19 11:30 08/12/19 10:31 Benadryl - PO 50 mg TID PRN Administration ALLERGIES Folic Acid 1 mg 08/10/19 11:45 08/12/19 10:31 Folic Acid - PO 1 mg DAILY EMELINA Administration Gabapentin 600 mg 08/10/19 14:00 08/12/19 15:11 Neurontin - PO 600 mg TID EMELINA Administration Ertapenem 1 gm/ Sodium 50 mls @ 100 mls/hr 08/10/19 12:15 08/12/19 10:31 Chloride IVPB 100 mls/hr DAILY EMELINA Administration Lorazepam 0.5 mg 08/10/19 11:34 08/12/19 15:10 Ativan - PO 08/14/19 00:00 0.5 mg Q8H PRN Administration Symptoms of Withdrawal Methadone HCl 30 mg 08/08/19 06:00 08/12/19 05:55 Dolophine - PO 30 mg DAILY@0600 EMELINA Administration Multivitamins/Minerals/Vitamin C 1 tab 08/08/19 10:00 08/12/19 10:31 Tab-A-Vit - PO 1 tab DAILY EMELINA Administration Thiamine HCl 100 mg 08/10/19 11:45 08/12/19 10:31 Vitamin B1 - PO 100 mg DAILY EMELINA Administration ASSESSMENT/PLAN: 59 yo F PMH COPD, HCV(s/p Mireyaoni), cirrhosis, substance abuse(heroin & alcohol - last use 2 days prior to admission) transferred from [facility] for leukopenia , thrombocytopenia. Pt had presenting complaint of fever, chills, malaise, burning pain with urination. Pt admitted for sepsis 2/2 UTI. US renal/bladder(08/08/19) unremarkable. CT head negative. 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 Hematology(Cris) consult thought neutropena-thrombocytopenia 2/2 to cirrhosis. HIV negative. Neutropenia resolved spontaneously. Resumed ?home benadryl for chronic itch. Ertapanem d/t ESBL UTI. # Sepsis 2/2 UTI > UA: protein 1+, blood 1+, nitrite +, LE 2+, WBC 84, bact 4250 > UCX(08/06/19) --ESBL(R to Gentamicin, Levofloxacin, Tobramycin, Bactrim) > BCX(08/06/19) --NGTD > renal and bladder U/S(08/08/19) --unremarkable > CXR: spine and Right shoulder w/ degenerative changes, deformed distal clavicles(chronic) - [facility]/ED: 101.8F, vanc + zosyn, ofirmev x1, duoneb x5, NS @2L - ID(Vitaliy) recs appreciated: > HIV: negative -- abx regimen: vancomycin stopped; zosyn stopped; ertapenem day #7 -- possibly ?macrobid PO #Leukopenia, thrombocytopenia - likely 2/2 alcohol abuse and cirrhosis > HIV: negative - neutropenia precautions - Obtain records from [facility] --pending - Heme(Cris) consult: --suspected d/t cirrhosis --transfuse platelets PRN # Acute toxic metabolic encephalopathy > CTH(08/06/19): neg for intracranial path. Microvascular disease noted. 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 I reviewed the resident's note and discussed the case with the resident. I agree with the resident's findings and plan as documented. SUBJECTIVE: OBJECTIVE: ASSESSMENT AND PLAN:
[2019-08-13] MEDS: GABAPENTIN 300 MG CAPSULE (FP) PO SCH ×2 (05:54→14:15)
[2019-08-13] MEDS: METHADONE HCL 10 MG TABLET PO SCH (05:55)
[2019-08-13] MEDS: LORazepam 0.5 MG TABLET PO PRN (07:16)
[2019-08-13 08:17] LABS: BASO % 0.5 % (0-2.0); HEMATOCRIT 37.4 % (32.4-45.2); HEMOGLOBIN 12.5 GM/dL (10.7-15.3); LYMPH % 37.8 % (8-40); MCH 31.4 pg (25.7-33.7); MCHC 33.5 g/dl (32.0-36.0); MEAN CELL VOLUME 93.5 fl (80-96); MEAN PLT VOLUME 9.5 fl (7.5-11.1); MONO % 14.4 % (3.8-10.2); NEUT % 45.3 % (42.8-82.8); PLATELET COUNT 57 K/MM3 (134-434); RBC 3.99 M/mm3 (3.60-5.2); RDW 13.3 % (11.6-15.6); WHITE BLOOD COUNT 2.1 K/mm3 (4.0-10.0)
[2019-08-13 08:55] LABS: BLOOD UREA NITROGEN 16.5 mg/dL (7-18); CALCIUM 8.9 mg/dL (8.5-10.1); CREATININE 0.6 mg/dL (0.55-1.3); MAGNESIUM 2.1 mg/dL (1.8-2.4); PHOSPHOROUS 4.4 mg/dL (2.5-4.9); POTASSIUM 4.3 mmol/L (3.5-5.1)
[2019-08-13] MEDS: MULTIVITAMINS (DAILY MVI) TABLET (FP) PO SCH (11:11)
[2019-08-13] MEDS: FOLIC ACID 1 MG TABLET (FP) PO SCH (11:12)
[2019-08-13] MEDS: THIAMINE HCL 100 MG TABLET (FP) PO SCH (11:12)
[2019-08-13] MEDS: diphenhydrAMINE HCL 25 MG CAPSULE (FP) PO PRN (11:12)
[2019-08-13] MEDS: ERTAPENEM SODIUM 1 GM in SODIUM CHLORIDE 50 ML IVPB SCH (11:12)
[2019-08-13 14:42] VITALS: BP 106/68; PULSE 99; TEMP 97.8
--- NOTE | 2019-08-13 15:25 | PN ---
Teaching Attending Note Name of Resident: Ovi Mehta ATTENDING PHYSICIAN STATEMENT I saw and evaluated the patient. I reviewed the resident's note and discussed the case with the resident. I agree with the resident's findings and plan as documented. SUBJECTIVE: no pain, no fever or chills. No ABBOTT . OBJECTIVE: NAD. CV: RRR Lungs: CTAB Abd: soft, NT, ND , NL BS . Ext : No edema or erythema. L second toe distal phalanx amputation ASSESSMENT AND PLAN: 59 y/o lady with h/o treated HCV, cirrhosis, ETOH use, heroin use now on methadone , COPD, who was sent form [facility] due to leukopenia 1- Leukopenia, and thrombocytopenia: due to liver disease and splenomegaly, and alcoho luse. worsened by UTI. now improved 2- ESBL UTI 3- ETOH use. 4- h/o heroin use , now on methadone 5- R shoulder pain 2/2 OA plan : - last day of Abx - f/u with pcp and GI - cont f/u with methadone clinic dispo : dc back to [facility]
--- NOTE | 2019-08-13 18:04 | DS ---
Physical Exam: SUBJECTIVE: Patient seen and examined OBJECTIVE: Vital Signs Period Temp Pulse Resp BP Sys/Rankin Pulse Ox Last 24 Hr 97.8 F-98.8 F 84-99 18-22 92-106/53-69 PHYSICAL EXAM GENERAL: The patient is lethargic, and fully oriented. HEAD: NC/AT, no temporal wasting EYES: extraocular movements intact, sclera anicteric, conjunctiva clear. No ptosis. ENT: Ears normal, nares patent, moist mucous membranes. NECK: Trachea midline, full range of motion, supple. Neg cervical LAD LUNGS: Breath sounds equal, mild b/l wheezes; no crackles, no accessory muscle use. No rash on chest HEART: Regular rate and rhythm, S1, S2 without murmur, rub or gallop. ABDOMEN: Soft, nontender, nondistended, normoactive bowel sounds, no guarding, no rebound. No rash on abd EXTREMITIES: 2+ pulses, warm, well-perfused, no edema. 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 RLE shorter and slightly smaller than LLE, RLE with prominent veins NEUROLOGICAL: lethargic, oriented, gait not observed. PSYCH: lethargic. No tremors. No agitation SKIN: Warm, dry, normal turgor, no rashes or lesions noted LABS Laboratory Results - last 24 hr 08/13/19 08/13/19 07:22 07:22 WBC 2.1 L RBC 3.99 Hgb 12.5 Hct 37.4 MCV 93.5 MCH 31.4 MCHC 33.5 RDW 13.3 Plt Count 57 L MPV 9.5 Absolute Neuts (auto) 1.0 L Neutrophils % 45.3 Lymphocytes % 37.8 Monocytes % 14.4 H Eosinophils % 2.0 Basophils % 0.5 Nucleated RBC % 0 Sodium 137 Potassium 4.3 Chloride 102 Carbon Dioxide 29 Anion Gap 6 L BUN 16.5 Creatinine 0.6 Est GFR (CKD-EPI)AfAm 114.82 Est GFR (CKD-EPI)NonAf 99.07 Random Glucose 77 Calcium 8.9 Phosphorus 4.4 Magnesium 2.1 HOSPITAL COURSE: Date of Admission:08/06/19 Date of Discharge: 08/13/19 59 yo F PMH COPD, HCV(s/p Harvoni), cirrhosis, substance abuse(heroin & alcohol - last use 2 days prior to admission) transferred from [place] for leukopenia , thrombocytopenia. Pt had presenting complaint of fever, chills, malaise, burning pain with urination. Pt admitted for sepsis 2/2 UTI. US renal/bladder(08/08/19) unremarkable. CT head negative. 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 Hematology(Cris) consult thought neutropena-thrombocytopenia 2/2 to cirrhosis. HIV negative. Neutropenia resolved spontaneously. Resumed home benadryl for chronic itch. Ertapanem d/t ESBL UTI. Completed 7d of IV abx. Methadone 30mg QD, as recommended by Addiction Medicine(Sanjeev). Pt to return to [facility] for Methadone outpatient. Letter stating pt completed EtOH detox provided. Stable for d/c to [facility]. Minutes to complete discharge: 33 Discharge Summary Problems reviewed: Yes Reason For Visit: URINARY TRACT INFECTION LEUKOPENIA SEPSIS Condition: Improved - Instructions Diet, Activity, Other Instructions: You were evaluated in the hospital for labwork suggestive of a low white blood cell count and paining pain with urination. A Diamond Cutter was consulted and concluded that your low blood counts were related to your liver cirrhosis. Subsequent labwork showed an improvement in low white blood cell count. You received intravenous antibiotics for your Urinary Tract Infection. Ultrasound imaging of the kidneys were normal. Xray imaging of your Right shoulder showed severe arthritis. You received Ativan for your history of chronic alcohol usage. You received Methadone for your history of chronic opioid usage. NEW Medications: -- Thiamine HCl[VITAMIN B1] 100mg, daily -- Multivitmin 1 tablet, daily - resume other home medications, as prescribed ADDITIONAL INSTRUCTIONS: - avoid illicit substances(eg. heroin, cocaine, marijuana, etc) Please follow-up with the physicians below: - Primary Care Physician(or come to the [facility]): to discuss your recent hospitalization and get labwork to check your BMP - Content Specialist(Melissa): to establish care for your liver cirrhosis - Orthopedist(Floyd): to discuss your Right shoulder arthritis - [facility]: to continue with your Methadone clinic Please seek immediate medical evaluation if you experience: - fever, chills - burning sensation with urination Referrals: Braxton Torres DO [Staff Physician] - Jaswinder Barrientos DO [Staff Physician] - ON STAFF,NOT [Primary Care Provider] - Disposition: HOME - Home Medications Comprehensive Discharge Medication List: Ambulatory Orders Baclofen 20 mg PO TID 08/05/19 Diphenhydramine [Benadryl Capsule -] 50 mg PO TID PRN 08/05/19 Folic Acid 1 mg PO DAILY 08/05/19 Gabapentin 600 mg PO TID 08/05/19 Multivitamin [One-Daily Multi-Vitamin] 1 each PO DAILY 08/05/19 Zolpidem Tartrate [Ambien] 5 mg PO HS 08/05/19 Thiamine HCl [Vitamin B1 -] 100 mg PO DAILY #30 tablet 08/13/19 This patient is new to me today: No Emergency Visit: No Critical Care patient: No - Discharge Referral Referred to [facility] Med [facility] No ATTENDING PHYSICIAN STATEMENT I saw and evaluated the patient. I reviewed the resident's note and discussed the case with the resident. I agree with the resident's findings and plan as documented. SUBJECTIVE: OBJECTIVE: ASSESSMENT AND PLAN:
== END 2019-08-13 15:37 | disposition home or self-care (01) | DRG 720 ==
LOC: JER 16:11 → JERBED 19:26 → J8W 08-07 02:45
PROVIDERS: ADMIT Internal Medicine; ATTEND Internal Medicine
PROC: HZ2ZZZZ Detoxification Services for Substance Abuse Treatment (ICD-10-PCS; principal; 2019-08-06)
DX: A41.89 Other specified sepsis (principal); G93.41 Metabolic encephalopathy; J44.9 Chronic obstructive pulmonary disease, unspecified; F10.239 Alcohol dependence with withdrawal, unspecified; B19.20 Unspecified viral hepatitis C without hepatic coma; D70.9 Neutropenia, unspecified; F11.23 Opioid dependence with withdrawal; R50.81 Fever presenting with conditions classified elsewhere; D72.829 Elevated white blood cell count, unspecified; M19.011 Primary osteoarthritis, right shoulder; B96.20 Unspecified Escherichia coli [E. coli] as the cause of diseases classified elsewhere; K70.30 Alcoholic cirrhosis of liver without ascites; E88.09 Other disorders of plasma-protein metabolism, not elsewhere classified; D69.6 Thrombocytopenia, unspecified; N39.0 Urinary tract infection, site not specified; Z89.422 Acquired absence of other left toe(s)
CPT/HCPCS: 36415; 70450-TC; 71045-TC-FY; 73030-TC-RT-FY; 76775-TC; 76856-TC; 80048; 80053; 80307; 81003; 82803; 83605; 83735; 83880; 84100; 85025; 85027; 85610; 85730; 86850; 86900; 86901; 87040; 87086; 87186; 87389; 87804; 93005; 93010; 94640; 97116-GP; 97161-GP; 99284-25; J0131; J7030

== ENCOUNTER 2022-03-22 12:38 | Inpatient (IN) | payer OTHER ==
[2022-03-22] MEDS ORDERED: methylPREDNISolone NA SUCC 125 MG/2 ML VIAL IVPB ONE (13:33)
[2022-03-22] MEDS ORDERED: ALBUTEROL SO4 2.5/IPRATROPIUM 0.5 INH SOL 3 ML VIAL.NEB. NEB ONE ×2 (13:34→14:03)
[2022-03-22] MEDS ORDERED: DIPHTH,PERTUSS(ACELL),TET 0.5 ML DISP.SYRIN IM ONE ×2 (13:55→14:46)
[2022-03-22] MEDS ORDERED: methylPREDNISolone NA SUCC 125 MG/2 ML VIAL ONE (14:03)
[2022-03-22] MEDS: ALBUTEROL SO4 2.5/IPRATROPIUM 0.5 INH SOL 3 ML VIAL.NEB. NEB SCH ×4 (14:20→14:44)
[2022-03-22 16:07] LABS: BASO % 0.5 % (0-2.0); EOS % 0.2 % (0-4.5); HEMATOCRIT 46.3 % (32.4-45.2); HEMOGLOBIN 16.2 GM/dL (10.7-15.3); LYMPH % 47.6 % (8-40); MCH 32.3 pg (25.7-33.7); MCHC 35.1 g/dl (32.0-36.0); MEAN CELL VOLUME 92.2 fl (80-96); MEAN PLT VOLUME 7.4 fl (7.5-11.1); MONO % 7.1 % (3.8-10.2); NEUT % 44.6 % (42.8-82.8); RBC 5.02 M/mm3 (3.60-5.2); RDW 13.7 % (11.6-15.6)
[2022-03-22 16:09] LABS: PLATELET COUNT 35 10^3/uL (134-434)
[2022-03-22 16:18] LABS: ALBUMIN 4.2 g/dl (3.4-5.0); BLOOD UREA NITROGEN 8.9 mg/dL (7-18); CALCIUM 8.9 mg/dL (8.5-10.1); MAGNESIUM 2.1 mg/dL (1.8-2.4)
[2022-03-22 16:21] LABS: CREATININE 0.6 mg/dL (0.55-1.3); PHOSPHOROUS 3.7 mg/dL (2.5-4.9)
[2022-03-22 16:23] LABS: BILIRUBIN,TOTAL 1.2 mg/dL (0.2-1); TOT PROT 8.3 g/dl (6.4-8.2)
[2022-03-22] MEDS ORDERED: ALBUTEROL SO4 HFA INHALER IH PRN (17:54)
[2022-03-22] MEDS ORDERED: SENNOSIDES 8.6MG TABLET (FP) PO PRN (17:54)
[2022-03-22 18:59] LABS: INR 1.02 (0.83-1.09); PROTHROMBIN TIME (PATIENT) 11.7 SEC (9.7-13.0)
[2022-03-22 19:02] LABS: ACTIVATED PTT 32.2 SECONDS (25.2-36.5)
[2022-03-22] MEDS: FOLIC ACID 1 MG TABLET (FP) PO SCH (19:10)
[2022-03-22] MEDS: SODIUM CHLORIDE 1,000 ML IV SCH (19:10)
[2022-03-22] MEDS: THIAMINE HCL 200 MG/2 ML VIAL IVPB SCH (19:10)
[2022-03-22] MEDS ORDERED: FOLIC ACID 1 MG TABLET (FP) ONE (19:13)
[2022-03-22] MEDS ORDERED: THIAMINE HCL 200 MG/2 ML VIAL ONE (19:13)
[2022-03-22] MEDS: BUDESONIDE/FORMETEROL FUMARATE 80/4.5 mcg INHALER IH SCH (22:47)
[2022-03-22] MEDS ORDERED: MELATONIN 5 MG TABLETS PO PRN (23:14)
[2022-03-22] MEDS ORDERED: ACETAMINOPHEN 325 MG TABLET (FP) PO PRN (23:14)
[2022-03-22 23:21] VITALS: BMI 18.4
[2022-03-22] MEDS: LORazepam 2 MG/ML SDV VIAL IVPUSH PRN (23:40)
[2022-03-23 07:27] LABS: OPIATES, URI NEGATIVE (NEGATIVE); PHENCYCLIDINE,URINE NEGATIVE (NEGATIVE); URINE BARBITURATES NEGATIVE (NEGATIVE); URINE BENZODIAZEPINES NEGATIVE (NEGATIVE)
[2022-03-23 07:28] LABS: COCAINE, UR NEGATIVE (NEGATIVE)
[2022-03-23 07:29] LABS: METHADONE, UR NEGATIVE (NEGATIVE); URINE AMPHETAMINES NEGATIVE (NEGATIVE)
[2022-03-23 09:03] LABS: HEMATOCRIT 40.1 % (32.4-45.2); HEMOGLOBIN 13.8 GM/dL (10.7-15.3); MCH 32.4 pg (25.7-33.7); MCHC 34.5 g/dl (32.0-36.0); RBC 4.27 M/mm3 (3.60-5.2); RDW 13.7 % (11.6-15.6)
[2022-03-23 09:49] LABS: BILIRUBIN,TOTAL 1.3 mg/dL (0.2-1)
[2022-03-23 09:55] LABS: ALBUMIN 3.7 g/dl (3.4-5.0)
[2022-03-23 09:56] LABS: CALCIUM 8.8 mg/dL (8.5-10.1)
[2022-03-23 09:58] LABS: BLOOD UREA NITROGEN 15.1 mg/dL (7-18)
[2022-03-23 09:59] LABS: CREATININE 0.7 mg/dL (0.55-1.3); MAGNESIUM 1.8 mg/dL (1.8-2.4); PHOSPHOROUS 3.9 mg/dL (2.5-4.9)
[2022-03-23] MEDS: SODIUM CHLORIDE 1,000 ML IV SCH ×2 (10:11→21:47)
[2022-03-23] MEDS: FOLIC ACID 1 MG TABLET (FP) PO SCH (10:12)
[2022-03-23] MEDS: MULTIVITAMINS (DAILY MVI) TABLET (FP) PO SCH (10:13)
[2022-03-23] MEDS: THIAMINE HCL 200 MG/2 ML VIAL IVPB SCH (10:13)
[2022-03-23 10:14] LABS: TOT PROT 7.5 g/dl (6.4-8.2)
[2022-03-23] MEDS: BUDESONIDE/FORMETEROL FUMARATE 80/4.5 mcg INHALER IH SCH ×2 (10:19→21:48)
[2022-03-23 10:23] LABS: ANISOCYTOSIS 0; MACROCYTOSIS 1+
[2022-03-23 10:47] LABS: WHITE BLOOD COUNT 1.2 K/mm3 (4.0-10.0)
[2022-03-23] MEDS ORDERED: THIAMINE HCL 100 MG TABLET (FP) PO SCH (10:47)
[2022-03-23 11:20] LABS: PH,URINE 5.5 (5.0-8.0); URINE APPEARANCE CLEAR; URINE BILIRUBIN NEGATIVE (NEGATIVE); URINE COLOR YELLOW; URINE GLUCOSE (UA) NEGATIVE (NEGATIVE); URINE KETONE 4+ (NEGATIVE); URINE LEUK ESTERASE NEGATIVE (NEGATIVE); URINE NITRITE NEGATIVE (NEGATIVE); URINE PROTEIN TRACE (NEGATIVE)
[2022-03-23] MEDS ORDERED: BUPRENORPHINE/NALOXONE 2 MG/0.5 MG FILM PACKET SL SCH (14:30)
[2022-03-23] MEDS ORDERED: ALBUTEROL SO4 2.5/IPRATROPIUM 0.5 INH SOL 3 ML VIAL.NEB. NEB SCH (14:30)
[2022-03-23] MEDS: GABAPENTIN 400 MG CAPSULE PO SCH ×2 (16:10→21:48)
[2022-03-23] MEDS: POLYETHYLENE GLYCOL (HEALTHYLAX) 3350 17 GM PACKET PO SCH (16:10)
[2022-03-23] MEDS: DOCUSATE SODIUM 100 MG CAPSULE (FP) PO SCH (21:47)
[2022-03-23] MEDS: LORazepam 2 MG/ML SDV VIAL IVPUSH PRN (21:48)
[2022-03-23] MEDS: BUPRENORPHINE/NALOXONE 2 MG/0.5 MG FILM PACKET SL SCH (21:48)
[2022-03-23] MEDS: traZODone HCL 50 MG TABLET (FP) PO SCH (21:48)
[2022-03-24] MEDS: BUPRENORPHINE/NALOXONE 2 MG/0.5 MG FILM PACKET SL SCH ×3 (06:31→22:08)
[2022-03-24] MEDS: GABAPENTIN 400 MG CAPSULE PO SCH ×3 (08:30→22:07)
[2022-03-24 09:35] LABS: HEMATOCRIT 38.9 % (32.4-45.2); HEMOGLOBIN 13.2 GM/dL (10.7-15.3); MCH 31.8 pg (25.7-33.7); MEAN CELL VOLUME 93.7 fl (80-96); MEAN PLT VOLUME 7.7 fl (7.5-11.1); RBC 4.16 M/mm3 (3.60-5.2); RDW 13.7 % (11.6-15.6)
[2022-03-24] MEDS: DOCUSATE SODIUM 100 MG CAPSULE (FP) PO SCH ×2 (09:40→22:07)
[2022-03-24] MEDS: POLYETHYLENE GLYCOL (HEALTHYLAX) 3350 17 GM PACKET PO SCH (09:40)
[2022-03-24] MEDS: BUDESONIDE/FORMETEROL FUMARATE 80/4.5 mcg INHALER IH SCH ×2 (09:41→22:08)
[2022-03-24] MEDS: PANTOPRAZOLE 40 MG TABLET PO SCH (09:41)
[2022-03-24] MEDS: THIAMINE HCL 100 MG TABLET (FP) PO SCH (09:41)
[2022-03-24] MEDS: traZODone HCL 50 MG TABLET (FP) PO SCH ×2 (09:41→22:07)
[2022-03-24] MEDS: FOLIC ACID 1 MG TABLET (FP) PO SCH (09:41)
[2022-03-24] MEDS: MULTIVITAMINS (DAILY MVI) TABLET (FP) PO SCH (09:41)
[2022-03-24] MEDS ORDERED: FOLIC ACID 1 MG TABLET (FP) PO SCH (10:00)
[2022-03-24 10:01] LABS: WHITE BLOOD COUNT 1.6 K/mm3 (4.0-10.0)
[2022-03-24 10:02] LABS: PLATELET COUNT 25 10^3/uL (134-434)
[2022-03-24 10:13] LABS: ALBUMIN 3.5 g/dl (3.4-5.0)
[2022-03-24 10:16] LABS: CALCIUM 9.1 mg/dL (8.5-10.1); CREATININE 0.5 mg/dL (0.55-1.3); PHOSPHOROUS 2.4 mg/dL (2.5-4.9)
[2022-03-24 10:17] LABS: MAGNESIUM 1.7 mg/dL (1.8-2.4); TOT PROT 6.8 g/dl (6.4-8.2)
[2022-03-24 10:20] LABS: BILIRUBIN,TOTAL 1.8 mg/dL (0.2-1)
[2022-03-24 11:49] LABS: ANISOCYTOSIS 0; MACROCYTOSIS 0
[2022-03-25] MEDS: GABAPENTIN 400 MG CAPSULE PO SCH ×3 (05:39→21:21)
[2022-03-25] MEDS: BUPRENORPHINE/NALOXONE 2 MG/0.5 MG FILM PACKET SL SCH ×4 (05:39→21:20)
[2022-03-25] MEDS ORDERED: THIAMINE HCL 100 MG TABLET (FP) PO SCH (10:00)
[2022-03-25] MEDS: POLYETHYLENE GLYCOL (HEALTHYLAX) 3350 17 GM PACKET PO SCH (10:46)
[2022-03-25] MEDS: DOCUSATE SODIUM 100 MG CAPSULE (FP) PO SCH ×2 (10:47→21:22)
[2022-03-25] MEDS: traZODone HCL 50 MG TABLET (FP) PO SCH ×2 (10:47→21:21)
[2022-03-25] MEDS: PANTOPRAZOLE 40 MG TABLET PO SCH (10:47)
[2022-03-25] MEDS: MULTIVITAMINS (DAILY MVI) TABLET (FP) PO SCH (10:47)
[2022-03-25] MEDS: FOLIC ACID 1 MG TABLET (FP) PO SCH (10:47)
[2022-03-25] MEDS: THIAMINE HCL 100 MG TABLET (FP) PO SCH (10:47)
[2022-03-25] MEDS: BUDESONIDE/FORMETEROL FUMARATE 80/4.5 mcg INHALER IH SCH ×2 (10:52→21:34)
[2022-03-25 11:36] LABS: HEMATOCRIT 45.1 % (32.4-45.2); HEMOGLOBIN 15.3 GM/dL (10.7-15.3); MCH 32.1 pg (25.7-33.7); MEAN CELL VOLUME 94.5 fl (80-96); MEAN PLT VOLUME 8.4 fl (7.5-11.1); RBC 4.78 M/mm3 (3.60-5.2)
[2022-03-25 11:40] LABS: PLATELET COUNT 27 10^3/uL (134-434)
[2022-03-25 11:41] LABS: WHITE BLOOD COUNT 1.8 K/mm3 (4.0-10.0)
[2022-03-25 11:52] LABS: CALCIUM 10.1 mg/dL (8.5-10.1)
[2022-03-25 11:53] LABS: MAGNESIUM 1.9 mg/dL (1.8-2.4)
[2022-03-25 11:55] LABS: BILIRUBIN,DIRECT 0.6 mg/dL (0.0-0.2); CREATININE 0.7 mg/dL (0.55-1.3)
[2022-03-25 11:56] LABS: PHOSPHOROUS 2.6 mg/dL (2.5-4.9)
[2022-03-25 11:57] LABS: BILIRUBIN,TOTAL 1.4 mg/dL (0.2-1); TOT PROT 8.6 g/dl (6.4-8.2)
[2022-03-25 12:02] LABS: ALBUMIN 4.3 g/dl (3.4-5.0)
[2022-03-25 13:54] LABS: ANISOCYTOSIS 0; HELMET CELLS 0; HOWELL-JOLLY BODIES 0; MACROCYTOSIS 0; OVALOCYTE 0; ROULEAU 0; SICKELED CELLS 0; TARGET CELLS 0; TEAR DROP CELLS 0; TOXIC GRANULATION 0
[2022-03-25] MEDS: LORazepam 2 MG/ML SDV VIAL IVPUSH PRN ×2 (15:16→21:21)
[2022-03-25] MEDS: SODIUM CHLORIDE 1,000 ML IV SCH (21:34)
[2022-03-26] MEDS: BUPRENORPHINE/NALOXONE 2 MG/0.5 MG FILM PACKET SL SCH ×3 (05:59→21:34)
[2022-03-26] MEDS: GABAPENTIN 400 MG CAPSULE PO SCH ×3 (05:59→21:35)
[2022-03-26 09:36] LABS: EOS % 1.5 % (0-4.5); HEMATOCRIT 38.2 % (32.4-45.2); HEMOGLOBIN 12.8 GM/dL (10.7-15.3); LYMPH % 21.6 % (8-40); MCH 31.6 pg (25.7-33.7); MCHC 33.6 g/dl (32.0-36.0); MEAN CELL VOLUME 94.2 fl (80-96); MEAN PLT VOLUME 8.1 fl (7.5-11.1); MONO % 11.1 % (3.8-10.2); NEUT % 64.8 % (42.8-82.8); RBC 4.05 M/mm3 (3.60-5.2); RDW 13.7 % (11.6-15.6)
[2022-03-26 09:42] LABS: WHITE BLOOD COUNT 1.9 K/mm3 (4.0-10.0)
[2022-03-26 09:46] LABS: CALCIUM 9.1 mg/dL (8.5-10.1)
[2022-03-26 09:47] LABS: MAGNESIUM 1.8 mg/dL (1.8-2.4)
[2022-03-26 09:48] LABS: BLOOD UREA NITROGEN 14.4 mg/dL (7-18)
[2022-03-26 09:50] LABS: BILIRUBIN,DIRECT 0.5 mg/dL (0.0-0.2); CREATININE 0.5 mg/dL (0.55-1.3); PHOSPHOROUS 4.1 mg/dL (2.5-4.9)
[2022-03-26 09:51] LABS: BILIRUBIN,TOTAL 1.1 mg/dL (0.2-1)
[2022-03-26] MEDS: DOCUSATE SODIUM 100 MG CAPSULE (FP) PO SCH ×3 (09:56→21:34)
[2022-03-26] MEDS: traZODone HCL 50 MG TABLET (FP) PO SCH ×3 (09:56→21:35)
[2022-03-26] MEDS: FOLIC ACID 1 MG TABLET (FP) PO SCH ×2 (09:56→12:48)
[2022-03-26] MEDS: POLYETHYLENE GLYCOL (HEALTHYLAX) 3350 17 GM PACKET PO SCH ×2 (09:57→12:48)
[2022-03-26] MEDS: MULTIVITAMINS (DAILY MVI) TABLET (FP) PO SCH ×2 (09:57→12:48)
[2022-03-26] MEDS: BUDESONIDE/FORMETEROL FUMARATE 80/4.5 mcg INHALER IH SCH ×3 (09:57→21:42)
[2022-03-26] MEDS: PANTOPRAZOLE 40 MG TABLET PO SCH ×2 (09:57→12:48)
[2022-03-26] MEDS: THIAMINE HCL 100 MG TABLET (FP) PO SCH ×2 (09:57→12:48)
[2022-03-26 10:02] LABS: ALBUMIN 3.1 g/dl (3.4-5.0); TOT PROT 6.3 g/dl (6.4-8.2)
[2022-03-26 11:12] LABS: ANISOCYTOSIS 0; HELMET CELLS 0; HOWELL-JOLLY BODIES 0; MACROCYTOSIS 0; OVALOCYTE 0; ROULEAU 0; SICKELED CELLS 0; TARGET CELLS 0; TEAR DROP CELLS 0; TOXIC GRANULATION 0
[2022-03-26 11:26] LABS: PLATELET COUNT 17 10^3/uL (134-434)
[2022-03-26] MEDS: SODIUM CHLORIDE 1,000 ML IV SCH (12:08)
[2022-03-27] MEDS: SODIUM CHLORIDE 1,000 ML IV SCH (01:30)
[2022-03-27] MEDS: BUPRENORPHINE/NALOXONE 2 MG/0.5 MG FILM PACKET SL SCH ×3 (06:16→21:58)
[2022-03-27] MEDS: GABAPENTIN 400 MG CAPSULE PO SCH ×3 (06:16→21:58)
[2022-03-27 09:57] LABS: BASO % 0.5 % (0-2.0); HEMATOCRIT 38.6 % (32.4-45.2); HEMOGLOBIN 12.7 GM/dL (10.7-15.3); LYMPH % 23.4 % (8-40); MCH 31.1 pg (25.7-33.7); MCHC 32.9 g/dl (32.0-36.0); MEAN CELL VOLUME 94.7 fl (80-96); MEAN PLT VOLUME 8.5 fl (7.5-11.1); MONO % 13.4 % (3.8-10.2); NEUT % 61.7 % (42.8-82.8); RBC 4.08 M/mm3 (3.60-5.2); RDW 14.1 % (11.6-15.6)
[2022-03-27 10:08] LABS: BLOOD UREA NITROGEN 12.2 mg/dL (7-18); CALCIUM 8.6 mg/dL (8.5-10.1); MAGNESIUM 1.7 mg/dL (1.8-2.4)
[2022-03-27 10:11] LABS: ALBUMIN 2.9 g/dl (3.4-5.0); BILIRUBIN,DIRECT 0.3 mg/dL (0.0-0.2); PHOSPHOROUS 3.8 mg/dL (2.5-4.9)
[2022-03-27 10:12] LABS: CREATININE 0.5 mg/dL (0.55-1.3)
[2022-03-27 10:13] LABS: BILIRUBIN,TOTAL 0.7 mg/dL (0.2-1); TOT PROT 5.8 g/dl (6.4-8.2)
[2022-03-27 10:30] LABS: PLATELET COUNT 28 10^3/uL (134-434); WHITE BLOOD COUNT 1.9 K/mm3 (4.0-10.0)
[2022-03-27] MEDS: MULTIVITAMINS (DAILY MVI) TABLET (FP) PO SCH (10:35)
[2022-03-27] MEDS: DOCUSATE SODIUM 100 MG CAPSULE (FP) PO SCH ×2 (10:35→21:58)
[2022-03-27] MEDS: traZODone HCL 50 MG TABLET (FP) PO SCH ×2 (10:35→21:58)
[2022-03-27] MEDS: PANTOPRAZOLE 40 MG TABLET PO SCH (10:35)
[2022-03-27] MEDS: BUDESONIDE/FORMETEROL FUMARATE 80/4.5 mcg INHALER IH SCH ×2 (10:36→21:59)
[2022-03-27] MEDS: FOLIC ACID 1 MG TABLET (FP) PO SCH (10:36)
[2022-03-27] MEDS: POLYETHYLENE GLYCOL (HEALTHYLAX) 3350 17 GM PACKET PO SCH (10:36)
[2022-03-27] MEDS: LORazepam 2 MG/ML SDV VIAL IVPUSH PRN ×2 (10:41→23:10)
[2022-03-27] MEDS: THIAMINE HCL 100 MG TABLET (FP) PO SCH (10:41)
[2022-03-27 11:27] LABS: ANISOCYTOSIS 1+; MACROCYTOSIS 1+
[2022-03-27 23:25] VITALS: RESP 20
[2022-03-28] MEDS: GABAPENTIN 400 MG CAPSULE PO SCH ×2 (05:51→14:49)
[2022-03-28] MEDS: BUPRENORPHINE/NALOXONE 2 MG/0.5 MG FILM PACKET SL SCH ×2 (05:51→14:49)
[2022-03-28] MEDS: SODIUM CHLORIDE 1,000 ML IV SCH (05:52)
[2022-03-28] MEDS ORDERED: AZITHROMYCIN 250 MG TABLET PO ONE (07:07)
[2022-03-28] MEDS ORDERED: CEFTRIAXONE 1 GM in DEXTROSE 5%-WATER - 50 ML IVPB SCH ×2 (07:30→10:00)
[2022-03-28] MEDS: MULTIVITAMINS (DAILY MVI) TABLET (FP) PO SCH (09:34)
[2022-03-28] MEDS: traZODone HCL 50 MG TABLET (FP) PO SCH (09:34)
[2022-03-28] MEDS: PANTOPRAZOLE 40 MG TABLET PO SCH (09:34)
[2022-03-28] MEDS: THIAMINE HCL 100 MG TABLET (FP) PO SCH (09:34)
[2022-03-28] MEDS: POLYETHYLENE GLYCOL (HEALTHYLAX) 3350 17 GM PACKET PO SCH (09:34)
[2022-03-28] MEDS: BUDESONIDE/FORMETEROL FUMARATE 80/4.5 mcg INHALER IH SCH (09:35)
[2022-03-28] MEDS: FOLIC ACID 1 MG TABLET (FP) PO SCH (09:35)
[2022-03-28 14:57] LABS: HEMATOCRIT 37.7 % (32.4-45.2); HEMOGLOBIN 12.4 GM/dL (10.7-15.3); MCH 31.8 pg (25.7-33.7); MCHC 33.1 g/dl (32.0-36.0); MEAN CELL VOLUME 96.2 fl (80-96); MEAN PLT VOLUME 8.9 fl (7.5-11.1); RBC 3.91 M/mm3 (3.60-5.2); RDW 13.9 % (11.6-15.6)
[2022-03-28 15:03] LABS: CALCIUM 8.2 mg/dL (8.5-10.1)
[2022-03-28 15:04] LABS: ALBUMIN 2.6 g/dl (3.4-5.0); BLOOD UREA NITROGEN 11.9 mg/dL (7-18)
[2022-03-28 15:05] LABS: PLATELET COUNT 23 10^3/uL (134-434); WHITE BLOOD COUNT 1.8 K/mm3 (4.0-10.0)
[2022-03-28 15:07] LABS: BILIRUBIN,DIRECT 0.2 mg/dL (0.0-0.2); CREATININE 0.5 mg/dL (0.55-1.3)
[2022-03-28 15:09] LABS: BILIRUBIN,TOTAL 0.4 mg/dL (0.2-1); TOT PROT 5.6 g/dl (6.4-8.2)
[2022-03-28 15:27] LABS: ANISOCYTOSIS 0; HELMET CELLS 0; HOWELL-JOLLY BODIES 0; MACROCYTOSIS 0; OVALOCYTE 0; ROULEAU 0; SICKELED CELLS 0; TARGET CELLS 0; TEAR DROP CELLS 0; TOXIC GRANULATION 0
[2022-03-28 15:36] LABS: INR 1.14 (0.83-1.09); PROTHROMBIN TIME (PATIENT) 13.1 SEC (9.7-13.0)
[2022-03-28 15:51] VITALS: BP 83/50; PULSE 85; TEMP 98.8
== END 2022-03-28 20:19 | disposition short-term general hospital (02) | DRG 140 ==
LOC: JER 12:38 → JERBED 16:44 → J8W 21:33
PROVIDERS: ADMIT Internal Medicine; ATTEND Internal Medicine
DX: J44.1 Chronic obstructive pulmonary disease with (acute) exacerbation (principal); K70.10 Alcoholic hepatitis without ascites; R09.02 Hypoxemia; F11.20 Opioid dependence, uncomplicated; D70.9 Neutropenia, unspecified; D69.6 Thrombocytopenia, unspecified; R41.82 Altered mental status, unspecified; S00.11XA Contusion of right eyelid and periocular area, initial encounter; F10.120 Alcohol abuse with intoxication, uncomplicated; K74.60 Unspecified cirrhosis of liver; K80.50 Calculus of bile duct without cholangitis or cholecystitis without obstruction
CPT/HCPCS: 36415; 70450-TC; 71045-TC-FY; 72125-TC; 74181-TC; 76700-TC; 80048; 80053; 80076; 80307; 81003; 82105; 82136; 82140; 82607; 82746; 83735; 83918; 84100; 84439; 84443; 84484; 85025; 85032; 85610; 85730; 86140; 86704; 86705; 87086; 87340; 87522; 90715; 93005; 93010; 97116-GP; 97161-GP; 99285-25; C9803-CS; U0003; U0005